=== PATIENT | male | born 1950 | race Caucasian/White ===

== ENCOUNTER 2018-01-23 23:12 | Inpatient (IN) | payer MEDICARE, OTHER ==
--- NOTE | 2018-01-23 23:57 | RAD ---
CHEST ONE VIEW 01/23/18 HISTORY: Headache. COMPARISON: None. FINDINGS: There is a left basilar air space opacity. Heart size is mildly enlarged. No pneumothorax. Small righ t effusion. IMPRESSION: 1. Left basilar opacity and small right effusion. 2. Mild cardiomegaly. POS: [facility]
[2018-01-23 23:59] LABS: #Basophils 0.1 thou/uL (0.0-0.2); #Eosinphils 0.2 thou/uL (0.0-0.7); #Lymphocytes 2.2 thou/uL (1.20-3.40); #Monocytes 0.5 thou/uL (0.11-0.59); #Neutrophils 3.1 thou/uL (1.40-6.50); %Basophils 1.1 % (0.0-1.0); %Lymphocytes 35.4 % (21.0-51.0); %Monocytes 8.9 % (0.0-10.0); %Neutrophils 50.6 % (42.0-75.0); Hemoglobin 14.6 g/dL (14.0-18.0); Mean Corpuscular HGB CONC 34.9 g/dL (32.0-36.0); Mean Corpuscular Hemoglobin 33.3 pg (27.0-31.0); Mean Corpuscular Volume 95.3 fL (78.0-98.0); Mean Platelet Volume 7.5 fL (7.4-10.4); Platelet Count 180 thou/uL (130-400); RBC Distribution Width 11.9 % (11.5-14.5); Red Blood Cell (RBC) Count 4.37 mill/uL (4.70-6.10); White Blood Cell (WBC) Count 6.1 thou/uL (4.8-10.8)
[2018-01-24] MEDS ORDERED: Labetalol HCl 100 MG/20 ML VIAL ONE (00:16)
[2018-01-24 00:18] LABS: CKMB 1.3 ng/mL (0-6.6); Troponin I 0.013 ng/mL (< 0.028)
[2018-01-24 00:26] LABS: ALT (SGPT) 19 U/L (8-55); AST (SGOT) 27 U/L (5-34); Albumin 3.9 g/dL (3.4-4.8); Alkaline Phosphatase 64 U/L (40-150); Anion Gap 12 mmol/L (10-20); BUN (Urea Nitrogen) 13 mg/dL (8.4-25.7); Bilirubin, Total 0.5 mg/dL (0.2-1.2); CK (CPK) 42 U/L (30-200); Calc. Creatinine Clearance 0 mL/min (70-130); Calcium 9.2 mg/dL (7.8-10.44); Carbon Dioxide 22 mmol/L (23-31); Chloride 102 mmol/L (98-107); Estimated GFR-MDRD 88; Globulin 3.7 g/dL (2.4-3.5); Glucose 191 mg/dL (80-115); Potassium 4.3 mmol/L (3.5-5.1); Protein, Total 7.6 g/dL (5.8-8.1); Sodium 132 mmol/L (136-145)
--- NOTE | 2018-01-24 02:36 | PDOC.FPRHP ---
- History of Present Illness Chief Complaint: HTN, headache History of Present Illness: Patient presented to ED for headache and HTN. Reports BPs systolic 140s-170s at home today, gradually increasing. BP has been elevated for past 6 wks. [facility], was given clonidine rx and sent home. Additionally notes headache that starts in sinus area and wrap around right side of face to occiput. Daily dull headaches that progressively worsen throughout the day. Increased in frequency since moving to [place] 6 wks ago. Does not take allergy medication. Endorses recent productive cough that is resolving. While in ED patient felt tired, sleepy and found to have pulse of 32. By the time EKG was set up, bradycardia resolved. Patiently currently asymptomatic. Over past couple of weeks, patient has noted daytime sleepiness that causes him to fall asleep for 5-10 min at a time. Sleeps with mouthpiece. Pt on valsartan at home. Dose was recently increased by nozzle and sleeve worker in [place]. Has appointment with Dr. Grigsby to establish care in 1.5 wks. ED Course: Labetalol 20 mg IV - Allergies/Adverse Reactions Allergies Allergy/AdvReac Type Severity Reaction Status Date / Time aspirin Allergy Verified 01/24/18 03:57 ibuprofen [From Advil] Allergy Verified 01/24/18 03:57 Penicillins Allergy Verified 01/24/18 03:57 - Home Medications Medication Instructions Recorded Confirmed Type Allopurinol 300 mg PO DAILY 01/24/18 01/24/18 History Cholecalciferol (Vitamin D3) 2,000 unit PO DAILY 01/24/18 01/24/18 History [D3-2000] Mometasone Furoate [Asmanex] 220 mcg IH PRN PRN 01/24/18 01/24/18 History Omeprazole 20 mg PO DAILY 01/24/18 01/24/18 History Prasugrel [Effient] 10 mg PO DAILY 01/24/18 01/24/18 History Rosuvastatin [Crestor] 5 mg PO DAILY 01/24/18 01/24/18 History Tamsulosin HCl [Flomax] 0.4 mg PO DAILY 01/24/18 01/24/18 History Ubidecarenone/Vit E Acet [Co Q-10 100 mg PO DAILY 01/24/18 01/24/18 History 100 mg Softgel] Valsartan 160 mg PO DAILY 01/24/18 01/24/18 History - History PMHx: HTN, HLD, CA, GERD, gout, BPH, agent [place] exposure, diverticulitis, asthma PSHx: cholecystectomy, AAA, Bladder cancer s/p 2 surgeries 2012, CABG, shoulder repair, achilles repair FHx: HLD, HTN, brother-heart murmur and aneurysm, dad-DM, thyroid problem Social: Lives with , retired, recently moved from [place]. Previous smoker, quit 1998, 30-60 pack yr hx. Occasional alcohol use. Denies drugs. - Review of Systems General: reports: weight/appetite/sleep changes (daytime sleepiness). denies: fever/chills, night sweats Eyes: denies: eye pain, vision changes ENT: denies: nasal congestion, rhinorrhea Respiratory: reports: cough. denies: shortness of breath Cardiovascular: reports: edema. denies: chest pain, palpitation Gastrointestinal: denies: nausea, vomiting, diarrhea, constipation, abdominal pain Genitourinary: denies: incontinence, dysuria Skin: denies: rashes, lesions Musculoskeletal: denies: pain, stiffness Neurological: denies: numbness, syncope Psychological: denies: anxiety, depression - Vital signs BP: 151/73 HR: 59 RR: 18 Tmax: 97.9 Pox: 96% on RA Wt: 130 kg - Physical Exam Constitutional: NAD, awake, alert and oriented HEENT: normocephalic and atraumatic, PERRLA, EOMI, grossly normal vision, grossly normal hearing, normal nasal mucosa, MMM, oropharynx clear Neck: supple, trachea midline, no LAD, no JVD, no thyromegaly Heart: RRR, normal S1/S2, no murmurs/rubs/gallops, pulses present, other (2+ pitting edema b/l LE) Lungs: CTAB, no respiratory distress, no rales/rhonchi, no wheezing, no retractions Abdomen: soft, non-tender, bowel sounds present, no masses/distention Musculoskeletal: normal structure, normal tone, ROM grossly normal Neurological: no focal deficit, other (full muscle strength) Skin: no rash/lesions, good turgor, capillary refill <2 seconds Heme/Lymphatic: no unusual bruising or bleeding Psychiatric: normal mood and affect FMR H&P: Results - Labs Result Diagrams: 01/24/18 03:22 01/24/18 03:22 Lab results: WBC 6.1 thou/uL (4.8-10.8) 01/23/18 23:49 Hgb 14.6 g/dL (14.0-18.0) 01/23/18 23:49 Hct 41.6 % (42.0-52.0) L 01/23/18 23:49 MCV 95.3 fL (78.0-98.0) 01/23/18 23:49 Plt Count 180 thou/uL (130-400) 01/23/18 23:49 Neutrophils % 50.6 % (42.0-75.0) 01/23/18 23:49 Sodium 132 mmol/L (136-145) L 01/23/18 23:49 Potassium 4.3 mmol/L (3.5-5.1) 01/23/18 23:49 Chloride 102 mmol/L (98-107) 01/23/18 23:49 Carbon Dioxide 22 mmol/L (23-31) L 01/23/18 23:49 BUN 13 mg/dL (8.4-25.7) 01/23/18 23:49 Creatinine 0.86 mg/dL (0.6-1.3) 01/23/18 23:49 Glucose 191 mg/dL (80-115) H 01/23/18 23:49 Calcium 9.2 mg/dL (7.8-10.44) 01/23/18 23:49 Total Bilirubin 0.5 mg/dL (0.2-1.2) 01/23/18 23:49 AST 27 U/L (5-34) 01/23/18 23:49 ALT 19 U/L (8-55) 01/23/18 23:49 Alkaline Phosphatase 64 U/L (40-150) 01/23/18 23:49 Creatine Kinase 42 U/L (30-200) 01/23/18 23:49 CK-MB (CK-2) 1.3 ng/mL (0-6.6) 01/23/18 23:49 B-Natriuretic Peptide 133.0 pg/mL (0-100) H 01/23/18 23:49 Serum Total Protein 7.6 g/dL (5.8-8.1) 01/23/18 23:49 Albumin 3.9 g/dL (3.4-4.8) 01/23/18 23:49 FMR H&P: A/P - Problem List (1) Symptomatic bradycardia Current Visit: Yes Status: Acute Code(s): R00.1 - BRADYCARDIA, UNSPECIFIED (2) Hypertension Current Visit: Yes Status: Acute Code(s): I10 - ESSENTIAL (PRIMARY) HYPERTENSION (3) Headache Current Visit: Yes Status: Acute Code(s): R51 - HEADACHE (4) CAD (coronary artery disease) Current Visit: Yes Status: Chronic Code(s): I25.10 - ATHSCL HEART DISEASE OF [place] CORONARY ARTERY W/O ANG PCTRS (5) HLD (hyperlipidemia) Current Visit: Yes Status: Chronic Code(s): E78.5 - HYPERLIPIDEMIA, UNSPECIFIED (6) BPH (benign prostatic hyperplasia) Current Visit: Yes Status: Chronic Code(s): N40.0 - BENIGN PROSTATIC HYPERPLASIA WITHOUT LOWER URINRY TRACT SYMP (7) Gout Current Visit: Yes Status: Chronic Code(s): M10.9 - GOUT, UNSPECIFIED (8) GERD (gastroesophageal reflux disease) Current Visit: Yes Status: Chronic Code(s): K21.9 - GASTRO-ESOPHAGEAL REFLUX DISEASE WITHOUT ESOPHAGITIS (9) Bladder cancer Current Visit: Yes Status: Resolved - Plan 67 yo M presents for headache and HTN and found to have episodic bradycardia. Symptomatic bradycardia - denies history of bradycardia. Pulse normally in 60s at home. Pulse 59 on examination. - Hemodynamically stable, infection not suspected - Pt received labetalol in ED. This could have been cause for bradycardia. Will avoid beta blockers. - trops neg x1, continue to trend - EKG was unable to be obtained during chavez episode in ED - monitor on tele - Echo pending - TSH ordered - consider cardiology consult HTN - systolic 170s in ED, given 20 mg labetalol, now 150s. Home valsartan dose recently increased per nozzle and sleeve worker in [place]. - Continue home valsartan. Patient may need additional home med for better BP control - prn hydralazine Possible undiagnosed CHF - BNP 133, LE pitting edema - CXR showed mild cardiomegaly, L basilar opacity, and small R pleural effusion - echo pending Headache - daily headaches for weeks, that progressively worsen throughout day - could be 2/2 sinus congestion - CT brain final read pending - currently mild - Tylenol prn CAD s/p CABG - continue home prasugrel - pt reports aspirin allergy HLD - continue home rosuvastatin BPH - continue home tamsulosin Gout -continue home allopurinol GERD -continue home PPI Hx of AAA s/p repair Hx of bladder cancer s/p resection Diet: HH Ppx: Lovenox Dispo: admit to telemetry for observation FMR H&P: Upper Level - Pertinent history 67M w/ PMH of CAD s/p CABG and AAA repair presenting to ER with headache and elevated blood pressures at home. He has had an on and off frontal headache since moving to [place] two months ago. Usually alleviates with sudafed. He had a persistent headache today and measured his BP at home on multiple occasions. When systolic pressures reached 170 mmHg he decided to come to the ED. In ED, patient given Labetalol IV 20mg and monitored. Headache resolved and pressures normalized, but his heart rate dropped to the 30's on several occasions. He describes a several month history of brief spells of sudden fatigue last last 5-10 minutes and then resolve. He denies any syncope, lightheadedness, or dizziness at any time. Bouts of bradycardia are too brief in ER to catch on EKG. Episodes associated with patients attempts to sleep ER: labetalol 20mg IV x 1 - Pertinent findings Vitals: 151/73 mmHg 60 bpm 18 RR 97.9F 97% on RA Gen: A&Ox3; in no acute distress HEENT: mild frontal sinus tenderness; no posterior pharyngeal erythema CV: RRR; no murmurs at time of exam Pulm: CTA-B GI: soft; non tender to palpations; no guarding Skin: no rashes or lesions Extremities: 1+ pitting edema to mid bhatia bilaterally CBC: wnl Na: 132 BNP: 133 CXR: left basilar opacity and small right pleural effusion - Plan Date/Time: 01/24/18 0233 1. Symptomatic bradycardia -no prior history of SSS or bradycardia -likely iatrogenic 2/2 to labetalol -monitor on tele for events overnight; trend cardiac enzymes -TTE in AM with possible Cardiology consult given results -repeat EKGs as indicated 2. HTN -well controlled s/p 20 mg labetalol in ED -continue home valsartan -PRN hydralazine 3. Headache -likely 2/2 sinuses -CT brain negative 4. CAD s/p CABG -continue home prasugrel Continue home medications for HLD, BPH, Gout, and GERD I, Fer Waller, have evaluated this patient and agree with findings/plan as outlined by event marketing intern resident. Pertinent changes/additions are listed here. Attending Addendum - Attending Addendum Date/Time: 01/24/18 0586 I personally evaluated the patient and discussed the management with Dr. Daley /Sridhar. I agree with the History, Examination, Assessment and Plan documented above with any addition or exceptions noted below. Patient here with headache and elevated BP that improved while in ER. However, due to BB therapy given by ED, he experienced symptomatic bradycardia and so was admitted to observation for further monitoring. However, on tele we are noting that he is having what appears to be new onset of Type 2 second degree AV block that is causing him symptoms. Cardiology to be consulted, and patient has history of CAD s/p CABG in [place]. He has not yet established with a nozzle and sleeve worker in [facility]. Will add Norvasc for improved BP control and await further recs from cardiology. Will change to inpatient status with his newfound diagnosis.
[2018-01-24] MEDS ORDERED: Ondansetron ODT 4 MG TAB PO PRN (03:16)
[2018-01-24] MEDS ORDERED: hydrALAZINE 20 MG/ML VIAL SLOW IVP PRN (03:27)
[2018-01-24 03:35] VITALS: BMI 37.5
[2018-01-24] MEDS: Acetaminophen 325 MG TAB PO PRN ×3 (03:41→21:59)
[2018-01-24 04:04] LABS: #Basophils 0.1 thou/uL (0.0-0.2); #Eosinphils 0.3 thou/uL (0.0-0.7); #Lymphocytes 2.1 thou/uL (1.20-3.40); #Monocytes 0.5 thou/uL (0.11-0.59); #Neutrophils 3.4 thou/uL (1.40-6.50); %Basophils 0.8 % (0.0-1.0); %Lymphocytes 33.6 % (21.0-51.0); %Monocytes 7.9 % (0.0-10.0); %Neutrophils 53.7 % (42.0-75.0); Hemoglobin 14.4 g/dL (14.0-18.0); Mean Corpuscular HGB CONC 35.8 g/dL (32.0-36.0); Mean Corpuscular Hemoglobin 34.6 pg (27.0-31.0); Mean Corpuscular Volume 96.7 fL (78.0-98.0); Mean Platelet Volume 7.9 fL (7.4-10.4); Platelet Count 206 thou/uL (130-400); RBC Distribution Width 11.9 % (11.5-14.5); Red Blood Cell (RBC) Count 4.16 mill/uL (4.70-6.10); White Blood Cell (WBC) Count 6.3 thou/uL (4.8-10.8)
[2018-01-24 04:23] LABS: Troponin I 0.036 ng/mL (< 0.028)
[2018-01-24 04:29] LABS: Anion Gap 17 mmol/L (10-20); BUN (Urea Nitrogen) 13 mg/dL (8.4-25.7); Calc. Creatinine Clearance 168 mL/min (70-130); Calcium 8.9 mg/dL (7.8-10.44); Carbon Dioxide 18 mmol/L (23-31); Chloride 106 mmol/L (98-107); Estimated GFR-MDRD Greater than 90; Glucose 151 mg/dL (80-115); Potassium 3.6 mmol/L (3.5-5.1); Sodium 137 mmol/L (136-145)
[2018-01-24 06:52] LABS: Troponin I 0.023 ng/mL (< 0.028)
--- NOTE | 2018-01-24 07:44 | CT ---
PRELIMINARY REPORT/[facility]/EMERGENCY AFTER HOURS PROCEDURE: EXAM: CT Head Without Intravenous Contrast EXAM DATE/TIME: 01/24/2018 12:19 AM CLINICAL HISTORY: 67 years old, male; Pain; Headache; Headache not specified; Patient HX: Patient reports BP in the 160 s - 200s in the evenings, associated with headache. TECHNIQUE: Axial computed tomography images of the head/brain without intravenous contrast. COMPARISON: No relevant prior studies available. FINDINGS: Brain: Normal. No hemorrhage. No significant white matter disease. No edema. Ventricles: Normal. No ventriculomegaly. Bones/joints: Normal. No acute fracture. Sinuses: Normal as visualized. No acute sinusitis. Mastoid air cells: Normal as visualized. No mastoid effusion. Soft tissues: Normal. IMPRESSION: No acute intracranial hemorrhage. Thank you for allowing us to participate in the care of your patient. Dictated and Authenticated by: Nahum Henley MD 01/24/2018 1:21 AM Central Time ([place] & [place]) FINAL REPORT HEAD CT WITHOUT CONTRAST: Date: 01/23/18 HISTORY: Headache. FINDINGS: This report is in agreement with the preliminary report by Leonel. No acute intracranial process. POS: [facility]
[2018-01-24] MEDS ORDERED: Enoxaparin Sodium 40 MG/0.4 ML SYRINGE SC SCH (09:00)
[2018-01-24] MEDS ORDERED: Non-Formulary Item 1 EACH (Valsartan [Valsartan] 160 MG) PO SCH (10:15)
[2018-01-24] MEDS ORDERED: Valsartan 80 MG TAB PO SCH ×3 (10:45→21:00)
[2018-01-24] MEDS ORDERED: Amlodipine 5 MG TAB PO SCH (10:45)
[2018-01-24] MEDS ORDERED: Prasugrel 10 MG TAB PO SCH (10:45)
[2018-01-24] MEDS: Allopurinol 300 MG TAB PO SCH ×2 (11:15→11:18)
[2018-01-24] MEDS ORDERED: Rosuvastatin 5 MG TAB PO SCH (21:00)
[2018-01-24] MEDS ORDERED: Mometasone Furoate 120 PUFF 220 MCG INH PRN (21:00)
[2018-01-24] MEDS: Tamsulosin HCl 0.4 MG CAP PO SCH (21:36)
[2018-01-25] MEDS: Acetaminophen 325 MG TAB PO PRN ×3 (04:16→21:10)
--- NOTE | 2018-01-25 06:34 | PDOC.FM ---
- Subjective Subjective: NAEO. Patient states he feels alright this AM. Denies any SOB, N/V/D, or vision changes. Endorses a persistent 3/10 headache in his periorbital and upper forehead area. Reported one episode of falling asleep for about 10-15 minutes around 10:00 this AM. Thinks it may be related to his heart. Says he has episodic feelings of a dull ache in the left side of his chest that is not related to or exacerbated with exertion. Does not make him SOB or nauseous either. - Objective MAR Reviewed: Yes Vital Signs & Weight: Vital Signs (12 hours) Temp Pulse Resp BP Pulse Ox 01/25/18 03:39 97.9 F 59 L 16 160/77 H 96 01/24/18 19:30 97.7 F 60 14 155/75 H 94 L Weight Weight 131.542 kg I&O: 01/23/18 01/24/18 01/25/18 06:59 06:59 06:59 Intake Total 720 Output Total 1175 Balance -455 Result Diagrams: 01/25/18 06:20 01/25/18 06:20 Phys Exam - Physical Examination Constitutional: NAD HEENT: moist MMs, oral pharynx no lesions Neck: supple, full ROM Respiratory: no wheezing, no rales, no rhonchi, clear to auscultation bilateral Cardiovascular: RRR, no significant murmur Gastrointestinal: soft, non-tender, no distention, positive bowel sounds Musculoskeletal: no edema, pulses present Neurological: non-focal, moves all 4 limbs Psychiatric: normal affect, A&O x 3 Skin: no rash, normal turgor Dx/Plan (1) Symptomatic bradycardia Code(s): R00.1 - BRADYCARDIA, UNSPECIFIED Status: Acute (2) Headache Code(s): R51 - HEADACHE Status: Acute (3) Hypertension Code(s): I10 - ESSENTIAL (PRIMARY) HYPERTENSION Status: Chronic (4) BPH (benign prostatic hyperplasia) Code(s): N40.0 - BENIGN PROSTATIC HYPERPLASIA WITHOUT LOWER URINRY TRACT SYMP Status: Chronic (5) CAD (coronary artery disease) Code(s): I25.10 - ATHSCL HEART DISEASE OF [place] CORONARY ARTERY W/O ANG PCTRS Status: Chronic (6) GERD (gastroesophageal reflux disease) Code(s): K21.9 - GASTRO-ESOPHAGEAL REFLUX DISEASE WITHOUT ESOPHAGITIS Status: Chronic (7) Gout Code(s): M10.9 - GOUT, UNSPECIFIED Status: Chronic (8) HLD (hyperlipidemia) Code(s): E78.5 - HYPERLIPIDEMIA, UNSPECIFIED Status: Chronic (9) Bladder cancer Status: Resolved - Plan Plan: 67YOM who presented w/ a CC of headache and HTN who was found to have episodic bradycardia. Symptomatic bradycardia - Patient denies any history of bradycardia. Pulse normally in 60s at home. Pulse 56-60 since admission. - Will continue to hold BBs as IV labetalol in the ED is likely what precipitated bradycardia. - Trops trending up to 0.036 but then downtrended. CK-MB neg x1. - Tele significant for Mobitx type II block on yesterday's strip. - Echo done but not yet read. - TSH WNL. - Cardiology consulted yesterday, Dr. Hernandez, but need to f/u on this as patient had appt w/ Dr. Grigsby next week and Citlali stated it may be better for Seb to see him in hospital. HTN - Systolic BP in 170s in ED. given 20 mg labetalol. Holding BBs 2/2 bradycardia & Mobitz II heart block seen on tele strip yesterday. SBP between 155-160 overnight on home meds & norvasc 2.5 QD. - Will continue home valsartan & increase norvasc to 5mg QD. Will consider making one med BID for better BP control if HTN persists with these changes. - Will stop prn hydralazine. Possible new onset CHF - BNP slightly elevated at 133 w/ LE pitting edema on exam. - CXR showed mild cardiomegaly, L basilar opacity, and small R pleural effusion. - Echo done but not yet read. - Will increase norvasc dose to 5mg QD today and evaluate for better BP control. - Cardiology consulted yesterday. Headache - Patient reports daily headaches for weeks that progressively worsen throughout day. - Could be 2/2 sinus congestion vs. uncontrolled HTN. - CT brain negative. - Will continue Tylenol & headache protocol PRN for headache. - Also started on claritin PRN for possible sinus headache. CAD s/p CABG - Will continue home prasugrel. - Patient reports aspirin allergy, will hold for now. HLD - Will continue rosuvastatin at increased dose of 20mg QHS. BPH - Will continue home tamsulosin. Gout - Will continue home allopurinol. GERD - Will continue home PPI. Hx of AAA s/p repair - Aware. Hx of bladder cancer s/p resection - Aware. Diet: HH DVT Ppx: Lovenox Dispo: admit to telemetry for observation
[2018-01-25 06:36] LABS: #Eosinphils 0.3 thou/uL (0.0-0.7); #Lymphocytes 1.8 thou/uL (1.20-3.40); #Monocytes 0.6 thou/uL (0.11-0.59); #Neutrophils 3.7 thou/uL (1.40-6.50); %Basophils 0.6 % (0.0-1.0); %Eosinophils 4.5 % (0.0-10.0); %Lymphocytes 28.7 % (21.0-51.0); %Monocytes 8.8 % (0.0-10.0); %Neutrophils 57.5 % (42.0-75.0); Mean Corpuscular HGB CONC 35.1 g/dL (32.0-36.0); Mean Corpuscular Hemoglobin 33.6 pg (27.0-31.0); Mean Corpuscular Volume 95.8 fL (78.0-98.0); Mean Platelet Volume 7.8 fL (7.4-10.4); Platelet Count 183 thou/uL (130-400); RBC Distribution Width 11.9 % (11.5-14.5); Red Blood Cell (RBC) Count 4.46 mill/uL (4.70-6.10); White Blood Cell (WBC) Count 6.4 thou/uL (4.8-10.8)
[2018-01-25 07:03] LABS: Anion Gap 12 mmol/L (10-20); BUN (Urea Nitrogen) 17 mg/dL (8.4-25.7); Calc. Creatinine Clearance 158 mL/min (70-130); Calcium 9.1 mg/dL (7.8-10.44); Carbon Dioxide 23 mmol/L (23-31); Chloride 106 mmol/L (98-107); Estimated GFR-MDRD Greater than 90; Glucose 124 mg/dL (80-115); Potassium 4.1 mmol/L (3.5-5.1); Sodium 137 mmol/L (136-145)
[2018-01-25] MEDS ORDERED: VIT E ACET PO SCH (09:00)
[2018-01-25] MEDS ORDERED: UBIDECARENONE PO SCH (09:00)
[2018-01-25] MEDS ORDERED: Non-Formulary Item 1 EACH (Valsartan [Valsartan] 160 MG) PO SCH (09:00)
[2018-01-25] MEDS ORDERED: Amlodipine 5 MG TAB PO SCH ×4 (09:00→12:00)
[2018-01-25] MEDS ORDERED: Rosuvastatin 5 MG TAB PO SCH ×3 (09:00→21:00)
[2018-01-25] MEDS ORDERED: Non-Formulary Item 1 EACH (Cholecalciferol (Vitamin D3) [D3-2000] 2,000 UNIT) PO SCH (09:00)
[2018-01-25] MEDS ORDERED: Tamsulosin HCl 0.4 MG CAP PO SCH (09:00)
[2018-01-25] MEDS ORDERED: Non-Formulary Item 1 EACH (Omeprazole [Omeprazole] 20 MG) PO SCH (09:00)
[2018-01-25] MEDS: Valsartan 80 MG TAB PO SCH (09:19)
[2018-01-25] MEDS: Allopurinol 300 MG TAB PO SCH (09:20)
[2018-01-25] MEDS: Ubidecarenone 50 MG CAP PO SCH (09:20)
[2018-01-25] MEDS ORDERED: Loratadine 10 MG TAB PO PRN (09:22)
[2018-01-25] MEDS: Enoxaparin Sodium 40 MG/0.4 ML SYRINGE SC SCH (12:12)
--- NOTE | 2018-01-25 13:02 | ADD-PRG ---
DATE OF SERVICE: 01/25/2018 This is an addendum to the note of Dr. Violet Zheng. Mr. Burns is resting quietly in bed. He is in no distress, and in fact quite cheerful. His EKG donna wed a Mobitz II heart block and we have consulted Cardiology for the possibility of a pacemaker The resident also noticed his blood pressure has become more difficult to control despite the fact th at he is on valsartan. We will therefore do a renal Doppler study to ensure he does not have renal a rtery stenosis. Further treatment and evaluation awaits our Cardiology referral.
[2018-01-25] MEDS: Prasugrel 10 MG TAB PO SCH (16:11)
--- NOTE | 2018-01-25 17:20 | ULT ---
RENAL DOPPLER: HISTORY: Hypertension. COMPARISON: None. TECHNIQUE: Lechuga-scale, color-flow, Doppler imaging, and spectral wave-form analysis was performed. FINDINGS: The examination was markedly limited by bowel gas. Grossly, no hydronephrosis. The right kidney measured 15.3 x 6 x 7.4 cm. The left kidney measured 1 3.8 x 6.8 x 6.9 cm. Bladder volume is 466 mL. Bladder mucosa is unremarkable. RENAL DOPPLER: The right renal artery cannot be assessed. The left renal artery has a velocity of 8 5.7 cm per second. The aorta has a velocity of 47.8 cm per second. Right renal artery to aorta ratio cannot be determined. Left renal artery to aorta ratio is 1.8. ARCUATE ARTERY RESISTIVE INDICES: Suboptimal evaluation of the arcuate arteries in the right kidney. Maximal arcuate artery resistive index in the left kidney is 0.72. IMPRESSION: 1. Suboptimal evaluation. Consider CT angiogram for better delineation of the renal arteries. 2. Increased resistive index in the left renal artery. Correlate for medical renal disease. POS: [facility]
[2018-01-25] MEDS ORDERED: Rosuvastatin 20 MG TAB PO SCH (21:00)
[2018-01-25] MEDS: Tamsulosin HCl 0.4 MG CAP PO SCH (21:10)
--- NOTE | 2018-01-25 23:47 | CON ---
DATE OF CONSULTATION: 01/25/2018 HISTORY OF PRESENT ILLNESS: Lane Burns is a 67-year-old white male, who recently moved from [place] and was to have a new-patient appointment in the office with me in another 9 or 10 days. He came to the hospital because he has been having increasing headaches since he moved from [place] 6 weeks ago. His blood pressure has also been significantly elevated, and so he came to the emergency room. In the emergency room, he was given labetalol 20 mg IV at 0033 hours on 01/24/2018. After that, he had significant episodes yesterday of second-degree AV block type 1 and episodes of 2:1 block. He was not aware of this. He denies ever having any history of lightheadedness, dizziness, or syncope. He does have previous cardiac history with CABG x2 in 1998. He also had endovascular aortic aneurysm repair in 2016. He denies any recent chest discomfort, shortness of breath, PND, or leg edema. PAST MEDICAL HISTORY: Hypertension, hypercholesterolemia, GERD, history of myocardial infarction, BPH, gout, history of bladder cancer, Agent [place] exposure, asthma. PAST SURGICAL HISTORY: Cholecystectomy, endovascular aortic aneurysm repair, CABG x2, bladder cancer, shoulder repair, Achilles repair. MEDICATIONS: Allopurinol 300 daily, vitamin D3, Asmanex inhaler p.r.n., omeprazole 20 daily, Effient 10 mg daily, rosuvastatin 5 mg daily, Flomax 0.4 daily, valsartan 320 mg daily, CoQ10 100 mg daily. ALLERGIES: ASPIRIN AND IBUPROFEN cause hives. PENICILLIN causes rash. SOCIAL HISTORY: He stopped smoking, quit in 1998. He occasionally drinks alcohol. REVIEW OF SYSTEMS: Twelve-point review of systems is otherwise unremarkable except for hypertension. PHYSICAL EXAMINATION: VITAL SIGNS: Blood pressure 163/78, pulse of 61. HEENT: PERRL. NECK: Supple. Carotid upstrokes normal without bruits. CHEST: Clear. CARDIAC: S1, S2 normal without any S3, S4, or murmurs. ABDOMEN: Normal bowel sounds without tenderness. EXTREMITIES: No clubbing, cyanosis, or edema. NEUROLOGIC: Grossly intact. SKIN: Warm and dry. LABORATORY DATA: EKG on admission revealed normal sinus rhythm with first- degree AV block. CBC is fairly unremarkable. TSH is normal. Sodium 137, potassium 4.1, chloride 106, carbon dioxide 23, BUN 17, creatinine 0.82. Troponin I is 0.036. BNP is 133. IMPRESSION: 1. Type I second-degree AV block. He also had episodes of 2:1 block and possible type 2 second-degree AV block after he was given labetalol 20 mg daily. The patient is completely asymptomatic in regard to this. He does state that he was on metoprolol in the past and that he was taken off that, because he was so weak. This was in approximately 2003. 2. Headaches. 3. Hypertension, poorly controlled. 4. Hypercholesterolemia. 5. Status post coronary artery bypass grafting x2. 6. Status post endovascular repair of abdominal aortic aneurysm. 7. Hypertension. 8. Former smoker. 9. True Aspirin allergy. PLAN: Obviously, beta blockers should be avoided. He will continue to be monitored overnight. He is completely asymptomatic as an outpatient when not given intravenous beta ama, and therefore I do not feel at this time that he requires pacemaker placement. Consideration can be given to an outpatient monitor for continued evaluation. Also, a fasting lipid profile will be obtained. RORY
--- NOTE | 2018-01-26 05:44 | PDOC.FM ---
- Subjective Subjective: NAEO. Patient states he feels well this AM. Denies any PND, SOB, CP, or LE edema. Still endorses a headache that he rates at a 0.5/10 in severity. Denies waking up feeling short of breath or daytime sleepiness. States both of his sons have GALEN and require CPAP at night as well as his . Has never had a sleep study. - Objective MAR Reviewed: Yes Vital Signs & Weight: Vital Signs (12 hours) Temp Pulse Resp BP Pulse Ox 01/26/18 03:45 97.9 F 61 13 155/80 H 94 L 01/26/18 00:00 63 167/78 H 01/25/18 19:34 97.6 F 64 18 178/81 H 95 Weight Weight 131.542 kg I&O: 01/24/18 01/25/18 01/26/18 06:59 06:59 06:59 Intake Total 720 1500 Output Total 1175 1700 Balance -455 -200 Result Diagrams: 01/26/18 05:37 01/26/18 05:37 Phys Exam - Physical Examination Constitutional: NAD HEENT: sclera anicteric Neck: supple, full ROM Respiratory: no wheezing, no rales, no rhonchi, clear to auscultation bilateral Cardiovascular: RRR, no significant murmur Gastrointestinal: soft, non-tender, no distention, positive bowel sounds Musculoskeletal: no edema, pulses present Neurological: non-focal, moves all 4 limbs Psychiatric: normal affect, A&O x 3 Skin: no rash, normal turgor Dx/Plan (1) Symptomatic bradycardia Code(s): R00.1 - BRADYCARDIA, UNSPECIFIED Status: Acute (2) Headache Code(s): R51 - HEADACHE Status: Acute (3) Hypertension Code(s): I10 - ESSENTIAL (PRIMARY) HYPERTENSION Status: Chronic (4) BPH (benign prostatic hyperplasia) Code(s): N40.0 - BENIGN PROSTATIC HYPERPLASIA WITHOUT LOWER URINRY TRACT SYMP Status: Chronic (5) CAD (coronary artery disease) Code(s): I25.10 - ATHSCL HEART DISEASE OF [place] CORONARY ARTERY W/O ANG PCTRS Status: Chronic (6) GERD (gastroesophageal reflux disease) Code(s): K21.9 - GASTRO-ESOPHAGEAL REFLUX DISEASE WITHOUT ESOPHAGITIS Status: Chronic (7) Gout Code(s): M10.9 - GOUT, UNSPECIFIED Status: Chronic (8) HLD (hyperlipidemia) Code(s): E78.5 - HYPERLIPIDEMIA, UNSPECIFIED Status: Chronic (9) Bladder cancer Status: Resolved - Plan Plan: [id number] who presented w/ a CC of headache and HTN who was found to have episodic bradycardia 2/2 Mobitz type II AV block. Symptomatic bradycardia: - Pulse slightly improved overnight to 61-64 since holding BBs since admission. - Cards on board, appreciate recs. - Will continue to hold BBs as IV labetalol in the ED is likely what precipitated bradycardia & per cards recs. - Tele significant for multiple episodes of Mobitz type II block on yesterday's strip. - Cardiology consulted yesterday, Dr. Grigsby saw patient and recommended outpatient f/u and decided no pacemaker was needed at this time as patient is completely asymptomatic regarding his heart block. HTN: - Systolic BP continued to get up to 170s overnight after increasing norvasc dose to 5mg QD yesterday. - Will continue home valsartan & inorvasc 5mg QD. Will consider making one med BID for better BP control. - Renal U/S significant for possible L-sided renal artery stenosis. Recommended f/u with CT to confirm diagnosis as study was suboptimal per radiology. - Will consider f/u CT today vs. continuing the workup on an outpatient basis as patient will see cards in office next week. New onset CHF: - Echo significant for diastolic dysfunction w/ EF of 50-55%. - BNP slightly elevated at 133 on admission. - CXR showed mild cardiomegaly, L basilar opacity, and small R pleural effusion. - Patient already on FELIPA-I and cannot tolerate BBs. Will give norvasc 5mg more time to take its effects and have patient f/u w/ cards as an outpatient. - Will consider recommendation for outpatient sleep study to evaluate for possible GALEN which could be contributing to his CHF. Headache: - Almost entirely resolved today. - Patient reports daily headaches for weeks that progressively worsen throughout day. - Could be 2/2 sinus congestion vs. uncontrolled HTN. No concern for acute sinusitis based on PE and vitals. - CT brain negative. - Will continue Tylenol & headache protocol PRN for headache. - Will continue claritin PRN for possible sinus headache. - Will continue adjusting BP regimen to optimize BP control. 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 - Patient reports aspirin allergy, will hold for now. HLD: - Will continue rosuvastatin at 10mg QHS. Patient states he has been taking 10mg at home as he did not tolerate 20mg 2/2 myopathy. - FLP significant for total cholesterol of 160, LDL of 68, & HDL of 38. hypertriglyceridemia: - FLP significant for triglyceride level of 300. - Will continue w/ 10mg rosuvastatin QHS for now. BPH: - Will continue home tamsulosin. Gout: - Will continue home allopurinol. GERD: - Will continue home PPI. Hx of AAA s/p repair: - Aware. Hx of bladder cancer s/p resection: - Aware. Diet: HH DVT Ppx: Lovenox Dispo: Possibly d/c home later today w/ card f/u outpatient if BP can be better controlled.
[2018-01-26 06:02] LABS: #Basophils 0.1 thou/uL (0.0-0.2); #Eosinphils 0.3 thou/uL (0.0-0.7); #Monocytes 0.7 thou/uL (0.11-0.59); #Neutrophils 3.6 thou/uL (1.40-6.50); %Basophils 0.8 % (0.0-1.0); %Eosinophils 5.1 % (0.0-10.0); Mean Corpuscular Hemoglobin 33.4 pg (27.0-31.0); Mean Corpuscular Volume 95.5 fL (78.0-98.0); Mean Platelet Volume 7.4 fL (7.4-10.4); Platelet Count 196 thou/uL (130-400); RBC Distribution Width 11.8 % (11.5-14.5); Red Blood Cell (RBC) Count 4.49 mill/uL (4.70-6.10); White Blood Cell (WBC) Count 6.7 thou/uL (4.8-10.8)
[2018-01-26 06:20] LABS: Anion Gap 15 mmol/L (10-20); BUN (Urea Nitrogen) 10 mg/dL (8.4-25.7); Calc. Creatinine Clearance 168 mL/min (70-130); Calcium 9.3 mg/dL (7.8-10.44); Carbon Dioxide 20 mmol/L (23-31); Cardiac Risk 4.4 (Less than 4.5); Chloride 105 mmol/L (98-107); Cholesterol 166 mg/dl (< 200 Desired); Estimated GFR-MDRD Greater than 90; Glucose 132 mg/dL (80-115); HDL Cholesterol 38 mg/dL (>60 Neg Risk); LDL Cholesterol, Calculated 68 mg/dL; Sodium 136 mmol/L (136-145); Triglycerides 300 mg/dL (Less than 150)
[2018-01-26] MEDS: Prasugrel 10 MG TAB PO SCH (08:23)
[2018-01-26] MEDS: Ubidecarenone 50 MG CAP PO SCH (08:23)
[2018-01-26] MEDS: Valsartan 80 MG TAB PO SCH (08:24)
[2018-01-26] MEDS: Allopurinol 300 MG TAB PO SCH (08:24)
[2018-01-26] MEDS: Enoxaparin Sodium 40 MG/0.4 ML SYRINGE SC SCH (08:24)
[2018-01-26] MEDS ORDERED: Amlodipine 5 MG TAB PO SCH ×2 (09:00)
[2018-01-26 10:17] LABS: Hemoglobin A1c 6.2 % (4.0-6.0)
--- NOTE | 2018-01-26 12:17 | PRG ---
DATE OF SERVICE: 01/26/2018 Mr. Burns looks and feels fine this morning. He was seen in consultation by Cardiology who felt his recent low ____ episode was related to an IV dose of labetalol given in the ER. He has been instruc hang in the past to avoid all beta blockers. In any event, he will be discharged today for an event r ecorder for 30 days to follow up with Dr. Grigsby thereafter. Clinically, he is much improved. His A1c was 6.2, making him a prediabetic. He has been counseled regarding diet. He will resume his ot her usual medications.
[2018-01-26 12:33] VITALS: BP 152/80; TEMP 98.5
[2018-01-26] MEDS ORDERED: Rosuvastatin 20 MG TAB PO SCH (21:00)
--- NOTE | 2018-01-27 13:48 | DIS-2 ---
DATE OF ADMISSION: 01/24/2018 DATE OF DISCHARGE: 01/26/2018 RESIDENT: Violet Zheng MD ADMITTING ATTENDING: Jordan Sarmiento MD DISCHARGE ATTENDING: Rickie Tony MD CONSULTATIONS: Cardiology, Dr. Jerel Hernandez. PROCEDURES: 1. Brain CT, which was negative for any acute intracranial hemorrhage or other acute process. 2. Chest x-ray, which was significant for mild cardiomegaly and a left basilar opacity and small right effusion. 3. Echocardiogram, which was significant for mild diastolic dysfunction with an ejection fraction estimated at 50%-55%. 4. Renal ultrasound significant for increased resistive index in the left renal artery. Of note, this was a suboptimal evaluation per Radiology. PRIMARY DIAGNOSES: 1. Iatrogenic symptomatic bradycardia secondary to beta ama administration. 2. Heart block AV second degree type 1. 3. Heart block AV second degree type 2. 4. Hypertensive urgency. 5. Headache, likely secondary to uncontrolled hypertension. 6. Suspected undiagnosed congestive heart failure. SECONDARY DIAGNOSES: 1. Hypertension. 2. Coronary artery disease, status post coronary artery bypass graft x2. 3. Hyperlipidemia. 4. BPH. 5. Gout. 6. Gastroesophageal reflux disease. 7. History of bladder cancer, status post resection. 8. History of AAA, status post repair. DISCHARGE MEDICATIONS: 1. Amlodipine 5 mg p.o. daily. 2. Claritin 10 mg p.o. daily p.r.n. 3. Simvastatin 10 mg p.o. daily. 4. Allopurinol 300 mg p.o. daily. 5. Cholecalciferol 2000 units p.o. daily. 6. Mometasone furoate 220 mcg inhaled p.r.n. 7. Omeprazole 20 mg p.o. daily. 8. Prasugrel 10 mg p.o. daily. 9. Tamsulosin HCL 0.4 mg p.o. daily. 10. Ubidecarenone/vitamin E 100 mg p.o. daily. 11. Valsartan 320 mg p.o. daily. DISCONTINUED MEDICATIONS: Simvastatin 5 mg p.o. daily. HOSPITAL COURSE: The patient is a 67-year-old male with a past medical history significant for coronary artery disease s/p CABG x2, hypertension, & hyperlipidemia who presented to the ED with a chief complaint of headache and hypertension recorded at home, both of which had been gradually increasing in severity over the last 6 weeks. The patient reports that he [place] [facility] [place] and was given a clonidine prescription and sent home. On initial presentation to the emergency department, the patient's blood pressure was noted to be significantly elevated at 203/82. He was therefore given 20 mg of IV labetalol, which resulted in a significant drop in his heart rate causing it to go as low as 30 beats per minute. A brain CT and chest x-ray ordered to rule out any acute cardiopulmonary or intracranial processes that could explain the patient's symptoms, both of which are negative. Initial labs included cardiac enzymes & a TSH which were WNLs. Also of note, the patient's BNP on presentation was slightly elevated at 133. Beta ama therapy was therefore discontinued and the patient was admitted for observation overnight with telemetry. By the following morning, the patient's blood pressure had remained poorly controlled overnight and 2.5 mg of Norvasc was added to his routine home medication, 320 mg of losartan p.o. daily. In addition, because patient's initial BNP was slightly elevated, an echocardiogram was ordered to rule out any new onset congestive heart failure. This was significant for some mild diastolic dysfunction and an estimated ejection fraction of 50%-55%. By the morning of 01/25/2018, the patient's blood pressure remained to be volatile and poorly controlled, getting as high as 176 systolic. The patient's Norvasc dose was therefore increased to 5 mg p.o. daily in addition to his home dose of valsartan and the patient was again monitored overnight. The morning of discharge, the last several recorded blood pressures were down to 152/80 systolic, which was much lower than the values the patient had been getting during his at home blood pressure checks and his headaches had completely resolved. Also of note, a renal ultrasound was obtained during the patient's hospitalization to evaluate for any possible renal artery stenosis; however, the study was deemed suboptimal and recommended to follow-up with a CTA of the renal arteries was recommended. He was therefore deemed stable enough to be discharged & recommended to get follow-up imaging on an outpatient basis. Regarding the patient's arrhythmia and episodes of second degree AV block type 1 and 2, the patient was noted to have several episodes of type 2 second degree AV block overnight on 01/24/2018 and 01/25/2018 with recurrent episodes of bradycardia as well. However, during these episodes, the patient was completely asymptomatic. Cardiology was consulted upon admission and came and evaluated the patient the afternoon of 01/25/18. Dr. Manuel Grigsby with Cardiology recommended the patient go by their office to warehouse order picker a Holter monitor to wear for the next 5 weeks and follow up with them as an outpatient at the end of the 5 weeks. Thus, the patient was cleared for discharge home in stable condition as his BP stabilized by the afternoon of discharge. DISPOSITION: Stable. DISCHARGE INSTRUCTIONS: 1. Location: Home. 2. Diet: Heart healthy diet, salt restricted. 3. Activity: As tolerated. No restrictions. 4. Followup: The patient was instructed to follow up with [facility] within 1 week following discharge. He is to follow up with Cardiology per his already scheduled appointment with Dr. Manuel Grigsby next week and then again in 5 weeks after wearing the Holter monitor as recommended by Cardiology. RORY
== END 2018-01-26 13:19 | disposition home or self-care (01) | DRG 308 ==
LOC: ERS 23:12 → ERHOLD 01-24 01:45 → 2SW 01-24 03:02 → OBSVTOIN 01-24 10:10 → 2NO 01-24 13:07
PROVIDERS: ADMIT Student in an Organized Health Care Education/Training Program; ATTEND Student in an Organized Health Care Education/Training Program
DX: R00.1 Bradycardia, unspecified (principal); I50.31 Acute diastolic (congestive) heart failure; T50.995A Adverse effect of other drugs, medicaments and biological substances, initial encounter; Y92.9 Unspecified place or not applicable; I44.1 Atrioventricular block, second degree; I16.0 Hypertensive urgency; R51 Headache; I11.0 Hypertensive heart disease with heart failure; I25.10 Atherosclerotic heart disease of native coronary artery without angina pectoris; Z95.1 Presence of aortocoronary bypass graft; Z85.51 Personal history of malignant neoplasm of bladder; Z87.891 Personal history of nicotine dependence; N40.0 Benign prostatic hyperplasia without lower urinary tract symptoms; K21.9 Gastro-esophageal reflux disease without esophagitis; E78.5 Hyperlipidemia, unspecified
CPT/HCPCS: 36415; 70450; 71045; 76700; 76770; 80048; 80053; 80061; 82553; 83036; 83880; 84443; 84484; 85025; 93005; 93306; 96374; J1650

== ENCOUNTER 2018-10-10 20:00 | Emergency (ER) | payer MEDICARE, OTHER ==
[2018-10-10] MEDS ORDERED: methylPREDNISolone Sod Succ/PF 125 MG/2 ML VIAL ONE (20:46)
[2018-10-10 21:32] LABS: #Eosinphils 0.4 thou/uL (0.0-0.7); #Lymphocytes 2.7 thou/uL (1.20-3.40); #Monocytes 0.7 thou/uL (0.11-0.59); #Neutrophils 4.8 thou/uL (1.40-6.50); %Basophils 0.6 % (0.0-1.0); %Eosinophils 4.5 % (0.0-10.0); %Lymphocytes 30.9 % (21.0-51.0); %Monocytes 8.1 % (0.0-10.0); %Neutrophils 55.9 % (42.0-75.0); Hemoglobin 12.7 g/dL (14.0-18.0); Mean Corpuscular Hemoglobin 34.1 pg (27.0-31.0); Mean Corpuscular Volume 94.6 fL (78.0-98.0); Mean Platelet Volume 7.6 fL (7.4-10.4); Platelet Count 200 thou/uL (130-400); RBC Distribution Width 11.6 % (11.5-14.5); Red Blood Cell (RBC) Count 3.72 mill/uL (4.70-6.10); White Blood Cell (WBC) Count 8.6 thou/uL (4.8-10.8)
[2018-10-10 22:06] LABS: Albumin 3.8 g/dL (3.4-4.8)
[2018-10-10 22:07] LABS: Chloride 100 mmol/L (98-107); Potassium 4.2 mmol/L (3.5-5.1); Sodium 131 mmol/L (136-145)
[2018-10-10 22:08] LABS: Calcium 9.2 mg/dL (7.8-10.44); Glucose 174 mg/dL (80-115)
[2018-10-10 22:09] LABS: Globulin 2.9 g/dL (2.4-3.5); Protein, Total 6.7 g/dL (5.8-8.1)
[2018-10-10 22:10] LABS: Anion Gap 12 mmol/L (10-20); Bilirubin, Total 0.5 mg/dL (0.2-1.2); Carbon Dioxide 23 mmol/L (23-31)
[2018-10-10 22:11] LABS: Alkaline Phosphatase 53 U/L (40-150)
[2018-10-10 22:12] LABS: BUN (Urea Nitrogen) 18 mg/dL (8.4-25.7); Calc. Creatinine Clearance 0 mL/min (70-130); Estimated GFR-MDRD 73
[2018-10-10 22:13] LABS: AST (SGOT) 16 U/L (5-34)
[2018-10-10 22:14] LABS: ALT (SGPT) 16 U/L (8-55)
== END 2018-10-10 22:58 | disposition home or self-care (01) ==
LOC: ERS 20:00
DX: M54.5 Low back pain (principal); I10 Essential (primary) hypertension; I71.4 Abdominal aortic aneurysm, without rupture; F31.9 Bipolar disorder, unspecified; Z79.899 Other long term (current) drug therapy
CPT/HCPCS: 36415; 80053; 84484; 85025; 96374; J2930

== ENCOUNTER 2019-01-21 09:47 | Outpatient (CLI) | payer MEDICARE, OTHER ==
[2019-01-21 10:18] LABS: Estimated GFR-MDRD - POC Greater than 90
--- NOTE | 2019-01-21 12:11 | CT ---
CT abdomen with and without contrast CT pelvis with and without contrast: (CT urogram) DATE: 01/21/2019 HISTORY: 68-year-old male with new diagnosis of prostate cancer. COMPARISON: None TECHNIQUE: This was specifically ordered to be performed with and without contrast. This was performed as a CT u rogram protocol, with precontrast, nephrographic/venous phase, and pyelographic/excretory phase, scans. FINDINGS: There is an approximately 6 x 4.9 cm infrarenal fusiform abdominal aortic aneurysm. There is an endog raft within the aneurysm. Although no obvious endoleak is visualized, an arterial phase scan was not performed, and therefore this is not a study specifically performed for evaluation of endoleak. A t the L3-4 level, there is a left retroaortic retroperitoneal enlarged lymph node measuring approximately 2.5 x 1.5 x 2.5 cm.. However, it has a fatty hilum. There are no renal, ureteral, or bl adder calculi. Bilateral nephrograms are symmetrical. No hydronephrosis. No evidence of pyelonephritis. No solid or cystic renal mass identified. No major pathology identified involving fior ateral kidneys, adrenals, pancreas, liver, or spleen. Diverticula at ascending colon, and several at proximal sigmoid. No signs of diverticulitis. Decompressed urinary bladder. No small bowel dilatio n. Several mildly enlarged bilateral iliac chain lymph nodes. For example, there is a 1 x 1.5 x 1.5 cm right external iliac chain lymph node abutting the anteromedial surface of the right acetabular ro of, just posterior to the right external iliac vein. There is a 1 x 1 cm right external iliac chain lymph node abutting the anterior surface of the right external iliac artery. Cholecystectomy clips in gallbladder fossa.. No suspicious osteoblastic skeletal lesion identified. IMPRESSION: 1. Several nonspecific mildly enlarged lymph nodes, including retroaortic-retroperitoneal, and right external iliac chain. 2. Fusiform infrarenal abdominal aortic aneurysm treated with endograft.
[2019-01-21] MEDS ORDERED: Iopamidol 370 76% 100 ML VIAL ONE (12:46)
--- NOTE | 2019-01-21 15:31 | NM ---
WHOLE BODY BONE SCAN: HISTORY: Prostate cancer. COMPARISON: None. TECHNIQUE: Patient was administered 32.70 mCi of technetium 99m MDP. Whole body imaging was performed after appr opriate delay. FINDINGS: Physiologic distribution of the radiotracer. Uptake in bilateral shoulders, sternoclavicular joints, knees, ankle and feet likely due to polyartic ular arthropathy. Uptake in the left and right mandible likely due to periodontal disease. Single focus of uptake in the axial skeleton at the level of the posterior right pedicle at approxima tely T11. Findings may be on the basis of degenerative change. Correlation made with an abdomen pelvis CT performed earlier today does not demonstrate any obvious CT correlate. As a conservative me asure, MRI of the thoracic spine performed. IMPRESSION: Uptake involving the right T11 pedicle. Better interrogation with a nonemergent thoracic spine MRI. Transcribed Date/Time: 01/21/2019 3:41 PM
== END 2019-01-21 09:48 | disposition home or self-care (01) ==
LOC: CT 09:47
PROVIDERS: ATTEND Urology
DX: C61 Malignant neoplasm of prostate (principal)
CPT/HCPCS: 74178; 78306; 82565; A9503; Q9967

== ENCOUNTER 2019-04-26 09:21 | Emergency (ER) | payer MEDICARE, OTHER ==
[2019-04-26 09:56] LABS: #Eosinphils 0.3 thou/uL (0.0-0.7); #Lymphocytes 1.5 thou/uL (1.20-3.40); #Monocytes 0.4 thou/uL (0.11-0.59); #Neutrophils 5.2 thou/uL (1.40-6.50); %Basophils 0.4 % (0.0-1.0); %Eosinophils 3.8 % (0.0-10.0); %Lymphocytes 19.8 % (21.0-51.0); %Monocytes 5.7 % (0.0-10.0); %Neutrophils 70.4 % (42.0-75.0); Hemoglobin 13.9 g/dL (14.0-18.0); Mean Corpuscular HGB CONC 34.8 g/dL (32.0-36.0); Mean Corpuscular Hemoglobin 32.6 pg (27.0-31.0); Mean Corpuscular Volume 93.5 fL (78.0-98.0); Mean Platelet Volume 7.1 fL (7.4-10.4); Platelet Count 181 thou/uL (130-400); RBC Distribution Width 12.3 % (11.5-14.5); Red Blood Cell (RBC) Count 4.26 mill/uL (4.70-6.10); White Blood Cell (WBC) Count 7.4 thou/uL (4.8-10.8)
[2019-04-26 10:18] LABS: ALT (SGPT) 12 U/L (8-55); AST (SGOT) 20 U/L (5-34); Albumin 3.9 g/dL (3.4-4.8); Alkaline Phosphatase 59 U/L (40-110); Anion Gap 17 mmol/L (10-20); BUN (Urea Nitrogen) 14 mg/dL (8.4-25.7); Bilirubin, Total 0.8 mg/dL (0.2-1.2); Calc. Creatinine Clearance 0 mL/min (70-130); Calcium 9.7 mg/dL (7.8-10.44); Carbon Dioxide 18 mmol/L (23-31); Chloride 108 mmol/L (98-107); Estimated GFR-MDRD Greater than 90; Globulin 3.3 g/dL (2.4-3.5); Glucose 119 mg/dL (83-110); Lipase 14 U/L (8-78); Potassium 4.2 mmol/L (3.5-5.1); Protein, Total 7.2 g/dL (5.8-8.1); Sodium 139 mmol/L (136-145)
--- NOTE | 2019-04-26 11:22 | CT ---
CTA CHEST WITH IV CONTRAST AND 3D POSTPROCESSING CT ABDOMEN WITH IV CONTRAST AND 3D POSTPROCESSING: Date: 04/26/19 HISTORY: 69-year-old male with lower abdominal pain. FINDINGS: The 6.0 x 4.9 cm infrarenal abdominal aortic aneurysmal sac is stable. Endograft is again seen and pa tent. The thoracoabdominal aorta demonstrates no intimal flap to suggest dissection. No evidence of e ndoleak is seen in the endograft. There is good flow in the celiac axis, SMA, JAMES, and both renal art eries. There are dependent changes in the posterior lung chu. No pneumothoraces, focal areas of consolida tion, or lung masses are seen. There is no evidence of aneurysmal dilatation of the thoracic aorta. The liver, spleen, pancreas, adrenal glands, and kidneys appear unremarkable. No calcified gallstones are seen. Prominent retroperitoneal lymph nodes are stable since 01/21/19. There are degenerative changes in the thoracolumbar spine. There are postop changes of median sternot chris. IMPRESSION: 1. No evidence of aortic dissection or endoleak. 2. Stable size of the infrarenal abdominal aortic aneurysmal sac since 01/21/19. POS: [facility]
[2019-04-26 12:29] LABS: Bilirubin Negative (Negative); Blood, Urine Negative (Negative); Clarity Clear (Clear); Glucose, Urine (Dipstick) Normal (Negative); Leukocyte Negative Leu/uL (Negative); Nitrite Negative (Negative); Protein, Urine (Dipstick) Negative (Neg-Trace); Urobilinogen Normal mg/dL (Less than 2)
[2019-04-26] MEDS ORDERED: Iopamidol-370 76% 500 ML 1 ML ONE (13:41)
== END 2019-04-26 12:09 | disposition home or self-care (01) ==
LOC: ERS 09:21
DX: R10.9 Unspecified abdominal pain (principal); I10 Essential (primary) hypertension; Z79.899 Other long term (current) drug therapy
CPT/HCPCS: 36415; 71275; 72191; 74175; 80053; 81003; 83690; 85025; Q9967

== ENCOUNTER 2019-06-02 07:49 | Outpatient (CLI) | payer MEDICARE, OTHER ==
[2019-06-02 08:24] LABS: Estimated GFR-MDRD - POC Greater than 90
--- NOTE | 2019-06-02 10:21 | CT ---
HISTORY: Hematuria. History of bladder cancer. COMPARISON: 01/21/2018 TECHNIQUE: Multiple contiguous axial images were obtained in a CT of the abdomen and pelvis with and without IV contrast. Sagittal and coronal reformats were performed. FINDINGS: The gallbladder has been removed. There are hypodensities adjacent to the gallbladder fossa, which ma y represent small cysts in the liver. No calcifications are seen in either kidney. Both ureters and t he urinary bladder are unremarkable. The kidneys are unremarkable without focal masses. The liver, adrenal glands, spleen and pancreas are unremarkable. Scattered diverticula are seen in the colon. The small bowel is normal in caliber. There is a stable, slightly prominent retroperitoneal lymph node just behind an abdominal aortic aneurysm. This is nons pecific. No other enlarged retroperitoneal or pelvic lymph nodes are seen. The abdominal aortic aneur ysm has a stent graft within it and it measures 5.6 cm in greatest dimension, which is stable. Degenerative changes are seen in the spine. There are tiny bilateral pleural effusions. The chest wal l soft tissues are unremarkable. IMPRESSION: 1. No significant urinary abnormality. 2. Diverticulosis. 3. Hepatic cysts. 4. Nonspecific, slightly enlarged retroperitoneal lymph node. 5. Bilateral pleural effusions. POS: [facility]
[2019-06-02] MEDS ORDERED: Iopamidol 370 76% 100 ML VIAL ONE (14:27)
== END 2019-06-02 07:50 | disposition home or self-care (01) ==
LOC: CT 07:49
PROVIDERS: ATTEND Urology
DX: R31.0 Gross hematuria (principal); C61 Malignant neoplasm of prostate; R35.0 Frequency of micturition; K57.30 Diverticulosis of large intestine without perforation or abscess without bleeding; K76.89 Other specified diseases of liver; R59.0 Localized enlarged lymph nodes; J90 Pleural effusion, not elsewhere classified
CPT/HCPCS: 36415; 74178; 82565; 84153; Q9967

== ENCOUNTER 2019-07-28 08:48 | Day surgery (SDC) | payer MEDICARE, OTHER ==
[2019-07-27 12:00] VITALS: BMI 34.2
[2019-07-28] MEDS ORDERED: PROPOFOL 40 ML ONE (10:40)
[2019-07-28] MEDS ORDERED: Lidocaine 1% PF 5 ML VIAL ONE (10:51)
[2019-07-28] MEDS ORDERED: PROPOFOL 200 MG/20 ML VIAL ONE (11:15)
--- NOTE | 2019-07-28 12:24 | EKG ---
Test Reason : POST CARDIOVERSION Blood Pressure : / mmHG Vent. Rate : 060 BPM Atrial Rate : 060 BPM P-R Int : 000 ms QRS Dur : 208 ms QT Int : 554 ms P-R-T Axes : 000 -62 103 degrees QTc Int : 554 ms AV sequential or dual chamber electronic pacemaker When compared with ECG of 24-JAN-2018 01:43, (Unconfirmed) AV sequential or dual chamber electronic pacemaker has replaced Sinus rhythm Confirmed by ROJAS HAWK, SHaylee ([id number]) on 07/28/2019 12:23:41 PM Referred By: SHONDA Confirmed By:DR. Shirley XIE MD
--- NOTE | 2019-07-28 12:54 | OP ---
DATE OF PROCEDURE: 07/28/2019 PROCEDURE PERFORMED: Transesophageal echocardiogram. INDICATION: A 69-year-old gentleman with paroxysmal atrial fibrillation. DESCRIPTION OF PROCEDURE: The patient was taken to the PACU. The patient was sedated by Anesthesiology. A transesophageal probe was placed into the distal esophagus and stomach. Echocardiographic images were obtained. The transesophageal probe was removed. FINDINGS: 1. Moderate decrease in left ventricular systolic function. 2. Moderate biatrial enlargement. 3. Left ventricle is mildly enlarged. 4. The right ventricle is dilated. 5. The aortic valve leaflets are sclerotic with a mild reduction in leaflet excursion. 6. Moderate mitral regurgitation. 7. Moderate tricuspid regurgitation. 8. No thrombus is noted in the left atrium or left atrial appendage. 9. Pacemaker wire noted in the right ventricle. 10. Atherosclerotic debris in the descending aorta. IMPRESSION: No formed thrombus in the left atrium or left atrial appendage. Job ID: [id number] MTDD
--- NOTE | 2019-07-28 20:43 | OP ---
DATE OF PROCEDURE: 07/28/19 PROCEDURE: Electrical cardioversion. Patient remained sedated after transesophageal echo demonstrated no left atrial or left atrial append age thrombus. With 200 joules of synchronized cardioversion, he converted from atrial fibrillation t o atrial/ventricular pacing confirmed with the [employer] program. Patient tolerated the procedure wel l.
== END 2019-07-28 12:58 | disposition home or self-care (01) ==
LOC: CCL 08:48
PROVIDERS: ATTEND Internal Medicine Cardiovascular Disease
PROC: B24BZZ4 Ultrasonography of Heart with Aorta, Transesophageal (ICD-10-PCS; principal; 2019-07-28)
PROC: 5A2204Z Restoration of Cardiac Rhythm, Single (ICD-10-PCS; 2019-07-28)
DX: I48.0 Paroxysmal atrial fibrillation (principal); I08.1 Rheumatic disorders of both mitral and tricuspid valves; I70.0 Atherosclerosis of aorta; I25.2 Old myocardial infarction; I44.2 Atrioventricular block, complete; E78.00 Pure hypercholesterolemia, unspecified; I10 Essential (primary) hypertension; J45.909 Unspecified asthma, uncomplicated; Z87.891 Personal history of nicotine dependence; Z79.01 Long term (current) use of anticoagulants; Z79.899 Other long term (current) drug therapy; Z88.0 Allergy status to penicillin; Z88.6 Allergy status to analgesic agent; Z91.010 Allergy to peanuts; Z91.040 Latex allergy status; Z95.0 Presence of cardiac pacemaker; Z95.1 Presence of aortocoronary bypass graft
CPT/HCPCS: 92960; 93005; 93010; 93312; J2001; J2704

== ENCOUNTER 2020-01-25 19:30 | Outpatient (CLI) | payer MEDICARE, OTHER | END 2020-01-25 19:31 | disposition home or self-care (01) | LOC: SLEEPLAB 19:30 | PROVIDERS: ATTEND Family Medicine | DX: G47.33 Obstructive sleep apnea (adult) (pediatric) (principal); R06.83 Snoring; G47.00 Insomnia, unspecified; G47.10 Hypersomnia, unspecified | CPT/HCPCS: 95810 ==

== ENCOUNTER 2020-02-17 12:43 | Outpatient (CLI) | payer OTHER | END 2020-02-17 12:44 | disposition home or self-care (01) | LOC: ULT 12:43 | PROVIDERS: ATTEND Orthopaedic Surgery | DX: I25.9 Chronic ischemic heart disease, unspecified (principal); I08.8 Other rheumatic multiple valve diseases | CPT/HCPCS: 93306 ==

== ENCOUNTER 2020-02-23 19:30 | Outpatient (CLI) | payer MEDICARE, OTHER | END 2020-02-23 19:31 | disposition home or self-care (01) | LOC: SLEEPLAB 19:30 | PROVIDERS: ATTEND Family Medicine | DX: G47.33 Obstructive sleep apnea (adult) (pediatric) (principal); G47.00 Insomnia, unspecified; G47.10 Hypersomnia, unspecified; G47.61 Periodic limb movement disorder | CPT/HCPCS: 95811 ==

== ENCOUNTER 2020-05-23 07:33 | Inpatient (IN) | payer MEDICARE, OTHER ==
[2020-05-23 08:15] LABS: #Eosinphils 0.2 thou/uL (0.0-0.7); #Lymphocytes 1.5 thou/uL (1.20-3.40); #Monocytes 0.6 thou/uL (0.11-0.59); #Neutrophils 6.3 thou/uL (1.40-6.50); %Basophils 0.5 % (0.0-1.0); %Eosinophils 2.2 % (0.0-10.0); %Monocytes 7.1 % (0.0-10.0); %Neutrophils 73.3 % (42.0-75.0); Hemoglobin 16.4 g/dL (14.0-18.0); Mean Corpuscular HGB CONC 34.6 g/dL (32.0-36.0); Mean Corpuscular Volume 98.5 fL (78.0-98.0); Mean Platelet Volume 7.8 fL (7.4-10.4); Platelet Count 154 thou/uL (130-400); RBC Distribution Width 12.3 % (11.5-14.5); Red Blood Cell (RBC) Count 4.82 mill/uL (4.70-6.10); White Blood Cell (WBC) Count 8.6 thou/uL (4.8-10.8)
[2020-05-23 08:37] LABS: ALT (SGPT) 25 U/L (8-55); AST (SGOT) 29 U/L (5-34); Albumin 4.1 g/dL (3.4-4.8); Alkaline Phosphatase 61 U/L (40-110); Anion Gap 15 mmol/L (10-20); BUN (Urea Nitrogen) 17 mg/dL (8.4-25.7); Bilirubin, Total 0.8 mg/dL (0.2-1.2); Calc. Creatinine Clearance 0 mL/min (70-130); Calcium 9.2 mg/dL (7.8-10.44); Carbon Dioxide 21 mmol/L (23-31); Chloride 106 mmol/L (98-107); Globulin 3.8 g/dL (2.4-3.5); Glucose 150 mg/dL (83-110); Lipase 21 U/L (8-78); Potassium 4.7 mmol/L (3.5-5.1); Protein, Total 7.9 g/dL (5.8-8.1); Sodium 137 mmol/L (136-145)
[2020-05-23] MEDS ORDERED: Morphine 4 MG/ML VIAL ONE (08:44)
[2020-05-23] MEDS ORDERED: Ondansetron PF 4 MG/2 ML Vial ONE (08:44)
[2020-05-23 09:32] LABS: Bilirubin 1+ (Negative); Blood, Urine Negative (Negative); Clarity Turbid (Clear); Glucose, Urine (Dipstick) Normal (Negative); Ketone, Urine Trace mg/dL (Negative); Leukocyte Negative Leu/uL (Negative); Nitrite Negative (Negative); Protein, Urine (Dipstick) 200 mg/dL (Neg-Trace); Specific Gravity, Urine 1.036 (1.002-1.036); Squamous Epithelial 0-3 HPF (0-3); Transitional Epithelial 0-3 HPF (None Seen); pH, Urine 5.5 (5.0-9.0)
[2020-05-23 09:33] LABS: Bacteria/HPF 1+ HPF (None Seen)
[2020-05-23 09:41] LABS: RBC/HPF 0-3 HPF (0-3)
--- NOTE | 2020-05-23 10:23 | CT ---
CT ABDOMEN AND PELVIS WITH IV CONTRAST 05/23/2020 CLINICAL INFORMATION: Abdominal pain with associated nausea and vomiting. COMPARISON: CTA abdomen on 04/26/2019 Technique: Multiple contiguous axial CT images are obtained through the abdomen and pelvis with IV contrast. Cor onal reformatted images are provided. FINDINGS: Lower Chest: The heart is mildly enlarged. Prominent calcifications mitral valve annulus are present. Cardiac pacemaking leads are partially visualized. Coronary artery calcifications are identified. Linear bibasilar densities are seen likely due to combination of atelectasis and scarring. Vessels: As noted on prior examination, there is evidence of an endograft repair of an abdominal aort ic aneurysm. The aneurysm sac measures 6.3 cm x 5.1 cm with previous measurements of 6 cm x 4.9 cm. Abdomen: Portal vein:Patent Gallbladder: Surgically absent. Liver: Small hypodense cystic appearing lesion is seen just to the gallbladder fossa likely due to sm all hepatic cysts unchanged from prior study. Spleen: within normal limits. Pancreas: within normal limits. Adrenals: within normal limits. Kidneys: Symmetric nonspecific bilateral perinephric stranding similar to prior exam. Kidneys otherwi se demonstrate a normal CT appearance. Bowel: Evidence of colonic diverticulosis. Small duodenal diverticulum is again seen. Dilated fluid-f illed loops of small bowel are seen measuring up to 3.8 cm. There is a transition point seen within the anterior right mid abdomen involving a small bowel loop just above the level of the umbilicus. Fi ndings are suggestive of low-grade partial small bowel obstruction. Appendix: Not definitely visualized Peritoneum: No ascites or free air; no fluid collection. Mesentery and Retroperitoneum: No enlarged lymph nodes are seen by CT size criteria. Few mildly promi nent lymph nodes are seen but unchanged compared to prior study. Abdominal Wall: within normal limits. Pelvis: Reproductive Organs: Suggestion of prostatectomy. Bladder: Incompletely distended but otherwise normal in appearance. Bones: No suspicious lytic or sclerotic osseous lesions. IMPRESSION: 1. Low-grade partial small bowel obstruction with transition point in the anterior abdomen just above the level of the umbilicus. 2. Endograft repair of an abdominal aortic aneurysm. The aneurysm sac measures 6.3 cm x 5.1 cm with p revious measurement of 6 cm x 4.9 cm. 3. Evidence of prostatectomy. 4. Mild cardiomegaly. 5. Vascular calcifications. 6. Colonic diverticulosis. 7. Hepatic cyst.
[2020-05-23] MEDS ORDERED: Benzocaine 20% Spray 60 ML CAN ONE (10:47)
[2020-05-23] MEDS ORDERED: Oxymetazoline HCl 0.05% (30 ML BOT) ONE (10:47)
[2020-05-23] MEDS ORDERED: Lidocaine 4% Topical Sol 50 ML BOT ONE (10:52)
[2020-05-23] MEDS ORDERED: Senokot S 8.6-50 MG TAB PO PRN (12:26)
[2020-05-23] MEDS ORDERED: Sodium Chloride 0.9% 1,000 ML IV SCH ×2 (12:30→14:15)
--- NOTE | 2020-05-23 13:03 | RAD ---
Chest AP view INDICATION: History of NG tube placement COMPARISON: Prior exam dated January 23, 2018 FINDINGS: Lungs: There is subsegmental volume loss involving both lower lobes. There are low lung volumes. Makenzie g apices are excluded. Cardiac silhouette: Stable [id number] cardiomegaly. There is a new dual-lead pacemaker overlyi ng left chest wall. Pulmonary vasculature: Normal Pleural spaces: No pleural effusion or pneumothorax is demonstrated. Upper abdomen: No abnormality seen. Osseous structures: No acute osseous abnormality. Additional findings: There is a gastric catheter projecting below the left hemidiaphragm and in the region of the gastric body. IMPRESSION: Limitations in exam as above. Low lung volumes with subsegmental volume loss within both lower lobes. Stable [id number] cardiomegaly without evidence of cardiac decompensation.
[2020-05-23] MEDS ORDERED: Mometasone Furoate 30 PUFF 220 MCG INH PRN (13:43)
[2020-05-23] MEDS ORDERED: Iopamidol 370 76% 50 ML VIAL FS ONE (14:03)
[2020-05-23] MEDS ORDERED: Iopamidol-370 76% 500 ML 1 ML ONE (14:03)
[2020-05-23 14:17] VITALS: BMI 34.9
--- NOTE | 2020-05-23 14:31 | HP ---
CHIEF COMPLAINT: Abdominal pain. HISTORY OF PRESENT ILLNESS: A 70-year-old male with a history of coronary artery disease, status post CABG in 1998; abdominal aortic aneurysm repair; atrial fibrillation; hyperlipidemia; bladder cancer; prostate cancer; sleep apnea, presenting with abdominal distention and several episodes of emesis. The patient had totally about 9 episodes of emesis overnight, mostly brownish material, and this morning, he had another 2 massive episodes of brownish material, which brought him to the ER. He had some right lower quadrant as well as umbilical area tenderness. No elevated white count or left shift. CT abdomen showed partial small bowel obstruction. Dr. Pedro has been contacted by the ER physician. The patient will be admitted and an NG tube insertion. The patient takes Eliquis for atrial fibrillation and he is on prasugrel and he is taking that since CABG in 1998. His troponin is negative. EKG without any ST-T wave changes. He did not notice any blood in the stool or emesis. He did not have any recent fever or chills. No sick exposure. The patient is afebrile. The pain is mostly in the umbilical area and diffuse around that site. REVIEW OF SYSTEMS: A 13-point review of systems reviewed. Pertinents addressed in the history of present illness. Rest are negative including no chest pain. No dysuria, hematuria, or hematochezia. Denies headache, blurriness, tingling, or numbness in his extremities. No rash. No polyuria or polydipsia. ALLERGIES: HE IS ALLERGIC TO ASPIRIN AND LATEX WELL RAW NUTS. MEDICATIONS: 1. Coenzyme Q10. 2. Vitamin B complex. 3. Vitamin D3. 4. Allopurinol 300 mg daily. 5. Omeprazole 40 mg daily. 6. Oxybutynin 10 mg daily. 7. Prasugrel 10 mg daily. 8. Metoprolol succinate 100 mg daily. 9. Eliquis 5 mg twice a day. 10. Lasix 20 mg daily. 11. He also takes Nexium 40 mg daily. 12. Pravastatin 40 mg daily. 13. Entresto 49 mg/51 mg daily. SOCIAL HISTORY: The patient does not drink or smoke. He lives with his . FAMILY HISTORY: Noncontributory. PHYSICAL EXAMINATION: VITAL SIGNS: His temperature 97.8, pulse 65, blood pressure 166/90, saturating 96% on room air. GENERAL: The patient is alert and oriented x3. He is not toxic looking. He is not nauseated now. He feels better and he actually wants to have a hamburger since he is starving. HEENT: Pupils are equal, round, and reactive to light. Anicteric. Mucous membranes moist. CARDIOVASCULAR: Regular rate and rhythm without murmurs, rubs, or gallops. LUNGS: Clear to auscultation bilaterally without wheezing, rales, or rhonchi. ABDOMEN: Protuberant and soft. Bowel sounds are positive, but it is quite distended. Palpation did not elicit any discomfort. He says that he just received morphine. EXTREMITIES: Without any pain or tenderness. Without any rash or edema. LABORATORY DATA: His chemistry panel including LFT is in the normal range. Lipase is 21. CBC in the normal range. UA is turbid, some bacteria, esterase and nitrite negative. His CT abdomen and pelvis, low-grade partial small bowel obstruction with transition point in the anterior abdomen just above the level of the umbilicus. Colonic diverticulosis. IMPRESSION AND PLAN: This is a 70-year-old male with a history of multiple medical problems presenting with the followin. Partial small-bowel obstruction. The patient will be getting nasogastric tube with low intermittent wall suctioning. Dr. Pedro has been consulted. We will provide him some IV fluid and keep him n.p.o. until clinically he improves. 2. Coronary artery disease, status post coronary artery bypass grafting. The patient is on prasugrel since 1998. Dr. Manuel Grigsby is his electro mechanical technologist. I discussed with him. It is okay to discontinue his prasugrel. The patient does take Eliquis for his atrial fibrillation, which we will be continuing. 3. History of abdominal aortic aneurysm repair and coronary artery disease, status post coronary artery bypass grafting, and atrial fibrillation. Continue with amiodarone and apixaban as well as rosuvastatin along with Toprol-XL. He is also on Entresto, which I will continue. Keep him n.p.o. for now. Job ID: [id number]
[2020-05-23] MEDS: Acetaminophen 325 MG TAB PO PRN (16:30)
[2020-05-23] MEDS ORDERED: Rosuvastatin 10 MG TAB PO SCH (21:00)
[2020-05-23] MEDS ORDERED: Apixaban 5 MG TAB PO SCH (21:00)
[2020-05-23] MEDS ORDERED: Sacubitril 49 MG/Valsartan 51 MG TABLET PO SCH (21:00)
[2020-05-23] MEDS ORDERED: Allopurinol 300 MG TAB PO SCH (21:00)
[2020-05-23] MEDS ORDERED: Morphine 2 MG/ML VIAL SLOW IVP PRN (22:00)
[2020-05-24] MEDS ORDERED: Furosemide 20 MG TAB PO SCH (09:00)
[2020-05-24] MEDS ORDERED: Losartan 25 MG TAB PO SCH (09:00)
[2020-05-24] MEDS: Amiodarone 200 MG TAB PO SCH (11:36)
[2020-05-24] MEDS: Oxybutynin ER 5 MG TAB PO SCH (11:37)
[2020-05-24] MEDS: Cholecalciferol 1,000 UNITS (25 MCG) TAB PO SCH (11:37)
--- NOTE | 2020-05-24 13:56 | PDOC.HOSPP ---
- Subjective Encounter Date: 05/24/20 Encounter Time: 11:45 Subjective: had 2 bm's from admission, one had large solid brown bm, second was mixed with liq stool no nausea or vomiting now ambulates wo assistive devices at home - Objective Vital Signs & Weight: Vital Signs (12 hours) Temp Pulse Resp BP Pulse Ox 05/24/20 12:08 97.7 F 66 16 134/75 97 05/24/20 08:41 98.1 F 60 16 146/75 H 98 05/24/20 08:00 98 05/24/20 04:02 97.6 F 62 16 125/68 97 Weight Weight 265 lb I&O: 05/23/20 05/24/20 05/25/20 06:59 06:59 06:59 Intake Total 500 Output Total 1300 Balance -800 Result Diagrams: 05/23/20 07:48 05/23/20 07:48 Hospitalist ROS - Medication Medications: Active Medications Generic Name Dose Route Start Last Admin Trade Name Freq PRN Reason Stop Dose Admin Acetaminophen 650 mg 05/23/20 12:26 05/23/20 16:30 Acetaminophen 325 Mg Tab PO 650 mg Q4H PRN Administration Headache/Fever/Mild Pain (1-3) Amiodarone HCl 200 mg 05/24/20 09:00 05/24/20 11:36 Amiodarone 200 Mg Tab PO 200 mg DAILY MICA Administration Cholecalciferol 2,000 units 05/24/20 09:00 05/24/20 11:37 Cholecalciferol 1,000 Units (25 Mcg) Tab PO 2,000 units DAILY MICA Administration Metoprolol Succinate 100 mg 05/24/20 09:00 05/24/20 11:38 Metoprolol Succinate Xl 100 Mg Tab PO 100 mg DAILY MICA Administration Oxybutynin Chloride 10 mg 05/24/20 09:00 05/24/20 11:37 Oxybutynin Er 5 Mg Tab PO 10 mg DAILY MICA Administration Pantoprazole Sodium 40 mg 05/24/20 09:00 05/24/20 11:37 Pantoprazole 40 Mg Tab PO 40 mg DAILY MICA Administration - Exam General Appearance: awake alert Eye: PERRL, anicteric sclera ENT: no oropharyngeal lesions, moist mucosa Neck: supple, no JVD Heart: RRR, no murmur Respiratory: no wheezes, no rales Gastrointestinal: soft, non-tender, non-distended, normal bowel sounds, no guarding, no rigidity Extremities: no cyanosis, no edema Neurological: cranial nerve grossly intact, no focal deficits Psychiatric: normal affect, A&O x 3 Hosp A/P (1) SBO (small bowel obstruction) Code(s): K56.609 - UNSP INTESTNL OBST, UNSP TO PARTIAL VERSUS COMPLETE OBST Status: Acute (2) CHF (congestive heart failure) Code(s): I50.9 - HEART FAILURE, UNSPECIFIED Status: Chronic Qualifiers: Heart failure type: systolic Heart failure chronicity: chronic Qualified Code(s): I50.22 - Chronic systolic (congestive) heart failure (3) Afib Code(s): I48.91 - UNSPECIFIED ATRIAL FIBRILLATION Status: Chronic Qualifiers: Atrial fibrillation type: paroxysmal Qualified Code(s): I48.0 - Paroxysmal atrial fibrillation (4) H/O endovascular stent graft for abdominal aortic aneurysm Code(s): Z95.828 - PRESENCE OF OTHER VASCULAR IMPLANTS AND GRAFTS Status: Chronic (5) GALEN (obstructive sleep apnea) Code(s): G47.33 - OBSTRUCTIVE SLEEP APNEA (ADULT) (PEDIATRIC) Status: Chronic (6) Obesity Code(s): E66.9 - OBESITY, UNSPECIFIED Status: Chronic Qualifiers: Obesity classification: adult class 2 (BMI 35 - 39.9) (7) BPH (benign prostatic hyperplasia) Code(s): N40.0 - BENIGN PROSTATIC HYPERPLASIA WITHOUT LOWER URINRY TRACT SYMP Status: Chronic Qualifiers: Lower urinary tract symptom presence: symptoms absent Qualified Code(s): N40.0 - Benign prostatic hyperplasia without lower urinary tract symptoms (8) CAD (coronary artery disease) Code(s): I25.10 - ATHSCL HEART DISEASE OF [place] CORONARY ARTERY W/O ANG PCTRS Status: Chronic Qualifiers: Coronary Disease-Associated Artery/Lesion type: bypass graft [place] vs. transplanted heart: [place] heart Associated angina: without angina Qualified Code(s): I25.810 - Atherosclerosis of coronary artery bypass graft(s) without angina pectoris (9) GERD (gastroesophageal reflux disease) Code(s): K21.9 - GASTRO-ESOPHAGEAL REFLUX DISEASE WITHOUT ESOPHAGITIS Status: Chronic Qualifiers: Esophagitis presence: esophagitis presence not specified Qualified Code(s): K21.9 - Gastro-esophageal reflux disease without esophagitis (10) Gout Code(s): M10.9 - GOUT, UNSPECIFIED Status: Chronic Qualifiers: Gout site: unspecified site Gout etiology: unspecified cause (11) HLD (hyperlipidemia) Code(s): E78.5 - HYPERLIPIDEMIA, UNSPECIFIED Status: Chronic (12) Hypertension Code(s): I10 - ESSENTIAL (PRIMARY) HYPERTENSION Status: Chronic Qualifiers: Hypertension type: essential hypertension Qualified Code(s): I10 - Essential (primary) hypertension - Plan sbo is resolving with patient passing 2 large bm's after admission small bowel follow through, if clear start full liq diet and advance to solid diet iv fluids will start home meds if sbo is cleared to ambulate in hallway as tolerated bowel regimen on dc hemostable prior ef of 35% in feb 2020, currently has no exacerbation
[2020-05-24] MEDS ORDERED: Fleet Enema 133 ML BOT PR SCH (14:00)
[2020-05-24] MEDS ORDERED: MD-Gastroview 120 ML BOT ONE (14:30)
--- NOTE | 2020-05-24 15:00 | RAD ---
EXAM: XR Small Bowel STANDARD PROVIDED CLINICAL HISTORY: Follow-up evaluation. Patient is now passing stool. Small bowel obstruction suggested on CT exam. COMPARISON: CT abdomen on 05/23/2020 FINDINGS: Freight Loading Supervisor image demonstrates residual contrast within the colon. Aortic stent graft is noted in place. Pa rtial visualization of cardiac pacemaking leads. A few gas-filled mildly prominent loops of small bowel are seen within the abdomen. Approximate trans it time of contrast through the small bowel is 45 minutes with contrast seen extending into the ascending and transverse colon. IMPRESSION: Mildly dilated loops of small bowel, but the transition time of contrast through the small bowel into the colon is 45 minutes
[2020-05-24] MEDS: Lactated Ringer's 1,000 ML IV SCH ×2 (19:45→20:49)
[2020-05-25] MEDS: Acetaminophen 325 MG TAB PO PRN (04:17)
[2020-05-25 05:44] LABS: #Eosinphils 0.2 thou/uL (0.0-0.7); #Lymphocytes 1.3 thou/uL (1.20-3.40); #Monocytes 0.4 thou/uL (0.11-0.59); #Neutrophils 4.2 thou/uL (1.40-6.50); %Basophils 0.5 % (0.0-1.0); %Eosinophils 3.9 % (0.0-10.0); %Lymphocytes 21.3 % (21.0-51.0); %Monocytes 6.8 % (0.0-10.0); %Neutrophils 67.5 % (42.0-75.0); Hemoglobin 13.9 g/dL (14.0-18.0); Mean Corpuscular HGB CONC 34.2 g/dL (32.0-36.0); Mean Corpuscular Hemoglobin 33.9 pg (27.0-31.0); Mean Corpuscular Volume 98.9 fL (78.0-98.0); Mean Platelet Volume 7.6 fL (7.4-10.4); Platelet Count 129 thou/uL (130-400); RBC Distribution Width 12.2 % (11.5-14.5); Red Blood Cell (RBC) Count 4.11 mill/uL (4.70-6.10); White Blood Cell (WBC) Count 6.3 thou/uL (4.8-10.8)
[2020-05-25 06:06] LABS: Anion Gap 14 mmol/L (10-20); BUN (Urea Nitrogen) 16 mg/dL (8.4-25.7); Calc. Creatinine Clearance 138 mL/min (70-130); Calcium 8.5 mg/dL (7.8-10.44); Carbon Dioxide 21 mmol/L (23-31); Chloride 109 mmol/L (98-107); Glucose 149 mg/dL (83-110); Magnesium 1.6 mg/dL (1.6-2.6); Potassium 3.6 mmol/L (3.5-5.1); Sodium 140 mmol/L (136-145)
[2020-05-25 07:32] VITALS: TEMP 98.1
[2020-05-25] MEDS: Amiodarone 200 MG TAB PO SCH (08:45)
[2020-05-25] MEDS: Cholecalciferol 1,000 UNITS (25 MCG) TAB PO SCH (08:45)
[2020-05-25] MEDS: Oxybutynin ER 5 MG TAB PO SCH (08:46)
[2020-05-25] MEDS ORDERED: Polyethylene Glycol 3350 17 GM Packet PO SCH (09:00)
[2020-05-25 11:45] VITALS: BP 115/66
--- NOTE | 2020-05-27 18:16 | DIS ---
DATE OF ADMISSION: 05/23/2020 DATE OF DISCHARGE: 05/25/2020 DISCHARGE DISPOSITION: To home. PRIMARY DISCHARGE DIAGNOSIS: Partial small bowel obstruction, resolved. SECONDARY DISCHARGE DIAGNOSES: History of congestive heart failure with ejection fraction of around 35% based on echo done in February of 2020 with no current exacerbation, chronic paroxysmal atrial fibrillation, history of endovascular stent for abdominal aortic aneurysm, obstructive sleep apnea, obesity, benign prostatic hypertrophy, coronary artery disease with prior bypass graft, gastroesophageal reflux disease, gout, dyslipidemia, hypertension. PROCEDURES DONE DURING HOSPITALIZATION: Abdominal and pelvic CAT scan done on the day of admission with contrast showed findings of low-grade partial small-bowel obstruction with transition point in the anterior abdomen just above the level of the umbilicus. Small-bowel follow-through done on 05/24/2020 showed mildly dilated loops of small bowel, but the transition of contrast through the small bowel into colon is 45 minutes. H and H 13 and 40, platelet count is 129, MCV is 98. BUN 16, creatinine 0.8, albumin 4.1. DISCHARGE MEDICATIONS: 1. MiraLAX 17 g daily. 2. Senokot-S 2 tablets at bedtime. 3. Omeprazole 20 mg daily. 4. Prasugrel 10 mg p.o. daily. 5. Vitamin D3 2000 units p.o. daily. 6. Crestor 10 mg p.o. daily. 7. CoQ10 100 mg p.o. daily. 8. Oxybutynin extended-release 10 mg daily. 9. Metoprolol extended-release 100 mg daily. 10. Lasix 20 mg p.o. q.a.m. 11. Eliquis 5 mg p.o. twice daily. 12. Losartan 50 mg daily. 13. Amiodarone 200 mg daily. 14. Tadalafil p.r.n. 15. Allopurinol 300 mg p.o. at bedtime. ALLERGIES: TO ASPIRIN, MOTRIN, LATEX, CELERY, PEANUT, PENICILLIN. DISCHARGE PLAN: The patient to follow up with Dr. Chandrakant Galaviz, his primary care physician, in 1 week. BRIEF COURSE DURING HOSPITALIZATION: The patient initially got admitted on the with complaints of severe nausea, vomiting, and abdominal pain. Initial CAT scan done revealed partial small-bowel obstruction. The patient was kept n.p.o. and was on IV fluids with close monitoring of electrolytes. He has had spontaneous bowel movements x2 on the day of admission. As patient was apprehensive, a small bowel x-ray with follow-through was done the next morning, which showed transition of contrast into colon in 45 minutes. Post this procedure, the patient has had nearly 4 to 5 bowel movements with clearing up of his stool. He is tolerating oral solid diet and is ambulating on the floor prior to discharge. Please note, I have seen and examined the patient on the day of discharge. Job ID: [id number] [facility]
== END 2020-05-25 16:41 | disposition home or self-care (01) | DRG 389 ==
LOC: ERS 07:33 → SURG B 11:15
PROVIDERS: ADMIT Internal Medicine; ATTEND Internal Medicine
DX: K56.600 Partial intestinal obstruction, unspecified as to cause (principal); I50.22 Chronic systolic (congestive) heart failure; I48.20 Chronic atrial fibrillation, unspecified; E78.5 Hyperlipidemia, unspecified; G47.33 Obstructive sleep apnea (adult) (pediatric); I25.10 Atherosclerotic heart disease of native coronary artery without angina pectoris; E66.9 Obesity, unspecified; I11.0 Hypertensive heart disease with heart failure; K21.9 Gastro-esophageal reflux disease without esophagitis; M10.9 Gout, unspecified; Z85.51 Personal history of malignant neoplasm of bladder; Z85.46 Personal history of malignant neoplasm of prostate; Z90.49 Acquired absence of other specified parts of digestive tract; Z95.1 Presence of aortocoronary bypass graft; Z95.0 Presence of cardiac pacemaker; Z87.891 Personal history of nicotine dependence; Z91.040 Latex allergy status; Z88.0 Allergy status to penicillin; Z88.8 Allergy status to other drugs, medicaments and biological substances; Z91.018 Allergy to other foods; Z79.01 Long term (current) use of anticoagulants; Z79.51 Long term (current) use of inhaled steroids; Z79.899 Other long term (current) drug therapy; Z68.35 Body mass index [BMI] 35.0-35.9, adult
CPT/HCPCS: 36415; 71045; 74177; 74250; 80048; 80053; 81003; 81015; 83690; 83735; 84484; 85025; 93005; 96374; 96375; J2270; J2405; Q9963; Q9967

== ENCOUNTER 2020-07-01 07:02 | Emergency (ER) | payer MEDICARE, OTHER ==
[2020-07-01 08:13] LABS: #Basophils 0.1 thou/uL (0.0-0.2); #Eosinphils 0.2 thou/uL (0.0-0.7); #Lymphocytes 1.5 thou/uL (1.20-3.40); #Monocytes 0.5 thou/uL (0.11-0.59); #Neutrophils 4.9 thou/uL (1.40-6.50); %Basophils 0.7 % (0.0-1.0); %Lymphocytes 20.4 % (21.0-51.0); %Monocytes 6.9 % (0.0-10.0); %Neutrophils 68.9 % (42.0-75.0); Hemoglobin 15.8 g/dL (14.0-18.0); Mean Corpuscular HGB CONC 33.7 g/dL (32.0-36.0); Mean Corpuscular Hemoglobin 33.6 pg (27.0-31.0); Mean Corpuscular Volume 99.7 fL (78.0-98.0); Mean Platelet Volume 7.6 fL (7.4-10.4); Platelet Count 135 thou/uL (130-400); RBC Distribution Width 12.2 % (11.5-14.5); Red Blood Cell (RBC) Count 4.71 mill/uL (4.70-6.10); White Blood Cell (WBC) Count 7.1 thou/uL (4.8-10.8)
[2020-07-01 08:32] LABS: ALT (SGPT) 19 U/L (8-55); AST (SGOT) 24 U/L (5-34); Albumin 3.8 g/dL (3.4-4.8); Alkaline Phosphatase 50 U/L (40-110); Anion Gap 15 mmol/L (10-20); BUN (Urea Nitrogen) 19 mg/dL (8.4-25.7); Bilirubin, Total 0.7 mg/dL (0.2-1.2); Calc. Creatinine Clearance 0 mL/min (70-130); Calcium 8.8 mg/dL (7.8-10.44); Carbon Dioxide 24 mmol/L (23-31); Chloride 104 mmol/L (98-107); Globulin 3.5 g/dL (2.4-3.5); Glucose 114 mg/dL (83-110); Potassium 4.3 mmol/L (3.5-5.1); Protein, Total 7.3 g/dL (5.8-8.1); Sodium 139 mmol/L (136-145)
--- NOTE | 2020-07-01 09:38 | RAD ---
PORTABLE CHEST: HISTORY: Difficulty breathing. COMPARISON: 05/23/2020 exam. FINDINGS: Heart size is enlarged. A pacemaker is present. Post sternotomy changes are noted. The lungs are c lear of infiltrates. There are no signs of failure. IMPRESSION: Cardiomegaly. No acute process. POS: OFF
== END 2020-07-01 09:51 | disposition home or self-care (01) ==
LOC: ERS 07:02
DX: R06.00 Dyspnea, unspecified (principal); E78.5 Hyperlipidemia, unspecified; I10 Essential (primary) hypertension; M10.9 Gout, unspecified; G47.30 Sleep apnea, unspecified; I48.91 Unspecified atrial fibrillation; Z87.891 Personal history of nicotine dependence; Z79.01 Long term (current) use of anticoagulants; Z79.899 Other long term (current) drug therapy
CPT/HCPCS: 71045; 80053; 83880; 84484; 85025; 93005; 94760

== ENCOUNTER 2020-09-27 10:08 | Outpatient (CLI) | payer MEDICARE, OTHER ==
[2020-09-27 10:42] LABS: Estimated GFR-MDRD - POC Greater than 90
== END 2020-09-27 10:09 | disposition home or self-care (01) ==
LOC: BICCT 10:08
PROVIDERS: ATTEND Thoracic Surgery (Cardiothoracic Vascular Surgery)
DX: I71.4 Abdominal aortic aneurysm, without rupture (principal)
CPT/HCPCS: 74174; 82565

== ENCOUNTER 2020-12-25 06:42 | Emergency (ER) | payer MEDICARE, OTHER ==
[2020-12-25] MEDS ORDERED: Ondansetron PF 4 MG/2 ML Vial ONE (07:21)
[2020-12-25 08:07] LABS: #Eosinphils 0.2 thou/uL (0.0-0.7); #Lymphocytes 1.5 thou/uL (1.20-3.40); #Monocytes 0.5 thou/uL (0.11-0.59); #Neutrophils 3.5 thou/uL (1.40-6.50); %Basophils 0.8 % (0.0-1.0); %Eosinophils 4.3 % (0.0-10.0); %Lymphocytes 25.9 % (21.0-51.0); %Monocytes 8.7 % (0.0-10.0); %Neutrophils 60.4 % (42.0-75.0); Hemoglobin 15.8 g/dL (14.0-18.0); Mean Corpuscular HGB CONC 34.7 g/dL (32.0-36.0); Mean Corpuscular Hemoglobin 34.7 pg (27.0-31.0); Mean Platelet Volume 7.6 fL (7.4-10.4); Platelet Count 153 thou/uL (130-400); RBC Distribution Width 12.1 % (11.5-14.5); Red Blood Cell (RBC) Count 4.55 mill/uL (4.70-6.10); White Blood Cell (WBC) Count 5.7 thou/uL (4.8-10.8)
[2020-12-25 08:35] LABS: ALT (SGPT) 17 U/L (8-55); AST (SGOT) 17 U/L (5-34); Albumin 3.6 g/dL (3.4-4.8); Alkaline Phosphatase 49 U/L (40-110); Anion Gap 14 mmol/L (10-20); BUN (Urea Nitrogen) 19 mg/dL (8.4-25.7); Bilirubin, Total 0.7 mg/dL (0.2-1.2); Calc. Creatinine Clearance 0 mL/min (70-130); Calcium 9.3 mg/dL (7.8-10.44); Carbon Dioxide 20 mmol/L (23-31); Chloride 106 mmol/L (98-107); Globulin 3.3 g/dL (2.4-3.5); Glucose 120 mg/dL (83-110); Potassium 4.2 mmol/L (3.5-5.1); Protein, Total 6.9 g/dL (5.8-8.1); Sodium 136 mmol/L (136-145)
[2020-12-25] MEDS ORDERED: Iopamidol-370 76% 500 ML 1 ML ONE (09:15)
[2020-12-25 10:41] LABS: Bilirubin Negative (Negative); Blood, Urine Negative (Negative); Clarity Clear (Clear); Glucose, Urine (Dipstick) Normal (Negative); Ketone, Urine Negative (Negative); Leukocyte Negative Leu/uL (Negative); Nitrite Negative (Negative); Protein, Urine (Dipstick) 10 mg/dL (Neg-Trace); Specific Gravity, Urine 1.023 (1.002-1.036); Urobilinogen Normal mg/dL (Less than 2)
== END 2020-12-25 12:03 | disposition home or self-care (01) ==
LOC: ERS 06:42
DX: R06.02 Shortness of breath (principal); Z20.822 Contact with and (suspected) exposure to COVID-19; I10 Essential (primary) hypertension; E78.5 Hyperlipidemia, unspecified; I48.91 Unspecified atrial fibrillation; M10.9 Gout, unspecified; Z87.891 Personal history of nicotine dependence; Z79.01 Long term (current) use of anticoagulants; Z79.899 Other long term (current) drug therapy
CPT/HCPCS: 36415; 71045; 71275; 80053; 81003; 83880; 84484; 85025; 85379; 93005; 96374; J2405; Q9967

== ENCOUNTER 2021-07-18 08:34 | Outpatient (CLI) | payer MEDICARE, OTHER | END 2021-07-18 08:35 | disposition home or self-care (01) | LOC: BICRAD 08:34 | PROVIDERS: ATTEND Internal Medicine Cardiovascular Disease | DX: I48.0 Paroxysmal atrial fibrillation (principal) | CPT/HCPCS: 36415; 71046; 80053; 80061; 84443 ==

== ENCOUNTER 2021-10-03 08:00 | Outpatient (CLI) | payer MEDICARE, OTHER | END 2021-10-03 08:01 | disposition home or self-care (01) | LOC: CT 08:00 | PROVIDERS: ATTEND Thoracic Surgery (Cardiothoracic Vascular Surgery) | DX: I71.4 Abdominal aortic aneurysm, without rupture (principal); I72.4 Aneurysm of artery of lower extremity; T82.390A Other mechanical complication of aortic (bifurcation) graft (replacement), initial encounter | CPT/HCPCS: 74174; 82565 ==

== ENCOUNTER 2022-04-08 08:35 | Outpatient (CLI) | payer MEDICARE, OTHER ==
[2022-04-08] MEDS ORDERED: Iopamidol 370 76% 100 ML VIAL ONE (11:10)
== END 2022-04-08 08:36 | disposition home or self-care (01) ==
LOC: CT 08:35
PROVIDERS: ATTEND Thoracic Surgery (Cardiothoracic Vascular Surgery)
DX: I71.40 Abdominal aortic aneurysm, without rupture, unspecified (principal); I72.4 Aneurysm of artery of lower extremity; I10 Essential (primary) hypertension
CPT/HCPCS: 74174; 82565; Q9967

== ENCOUNTER 2025-01-11 16:27 | Outpatient (CLI) | payer MEDICARE ==
[2025-01-11 17:22] LABS: #Basophils 0.04 10x3/uL (0.0-0.2); #Eosinophils 0.20 10x3/uL (0.0-0.7); #Monocytes 0.60 10x3/uL (0.11-0.59); #Neutrophils 4.41 10x3/uL (1.40-6.50); %Basophils 0.5 % (0.0-1.0); %Eosinophils 2.7 % (0.0-10.0); %Lymphocytes 27.5 % (21.0-51.0); %Monocytes 8.2 % (0.0-10.0); %Neutrophils 60.7 % (42.0-75.0); Hematocrit 38.3 % (42.0-52.0); Hemoglobin 13.3 g/dL (14.0-18.0); Mean Corpuscular Hemoglobin 33.5 pg (27.0-31.0); Mean Corpuscular Volume 96.5 fL (78.0-98.0); Platelet Count 176 10x3/uL (130-400); Red Blood Cell (RBC) Count 3.97 mill/uL (4.70-6.10); White Blood Cell (WBC) Count 7.28 10x3/uL (4.8-10.8)
[2025-01-11 18:15] LABS: Anion Gap 14 mmol/L (10-20); BUN (Urea Nitrogen) 16 mg/dL (8.4-25.7); Calc. Creatinine Clearance 0 mL/min (70-130); Calcium 9.0 mg/dL (7.8-10.44); Carbon Dioxide 19 mmol/L (23-31); Chloride 103 mmol/L (98-107); Glucose 103 mg/dL (83-110); Potassium 4.2 mmol/L (3.5-5.1); Sodium 132 mmol/L (136-145)
== END 2025-01-11 16:28 | disposition home or self-care (01) ==
LOC: LABBT 16:27
PROVIDERS: ATTEND Orthopaedic Surgery
DX: Z01.818 Encounter for other preprocedural examination (principal); S60.450A Superficial foreign body of right index finger, initial encounter
CPT/HCPCS: 71046; 80048; 85025; 93005; 93010

== ENCOUNTER 2025-01-16 08:56 | Day surgery (SDC) | payer MEDICARE, OTHER ==
[2025-01-11 16:47] VITALS: BMI 36.3
[2025-01-16] MEDS ORDERED: PROPOFOL 20 ML ONE (09:21)
[2025-01-16] MEDS ORDERED: fentaNYL PF 100 MCG/2 ML SYRINGE ONE (09:21)
[2025-01-16] MEDS ORDERED: CEFAZOLIN 2 GM VIAL ONE (09:29)
[2025-01-16] MEDS ORDERED: Bacitracin Zinc Ointment 30 gm TUBE ONE (10:39)
== END 2025-01-16 11:40 | disposition home or self-care (01) ==
LOC: SDC 08:56
PROVIDERS: ATTEND Orthopaedic Surgery
PROC: 0HDQXZZ Extraction of Finger Nail, External Approach (ICD-10-PCS; principal; 2025-01-16)
DX: L60.0 Ingrowing nail (principal); M19.041 Primary osteoarthritis, right hand; R73.03 Prediabetes; Z95.1 Presence of aortocoronary bypass graft; Z96.1 Presence of intraocular lens; Z85.51 Personal history of malignant neoplasm of bladder; Z95.0 Presence of cardiac pacemaker; Z87.891 Personal history of nicotine dependence; Z98.49 Cataract extraction status, unspecified eye; Z90.49 Acquired absence of other specified parts of digestive tract; Z91.040 Latex allergy status; Z88.0 Allergy status to penicillin; Z88.6 Allergy status to analgesic agent; Z91.010 Allergy to peanuts
CPT/HCPCS: 11730; A6223; J0665; J2704